=== PATIENT | female | born 1980 | race Caucasian/White ===

== ENCOUNTER 2025-05-11 16:04 | Inpatient (IN) ==
[2025-05-11] MEDS ORDERED: BUDESONIDE 0.5 MG/2 ML AMPUL.NEB INH ONE (16:29)
[2025-05-11] MEDS ORDERED: FUROSEMIDE 40 MG/4 ML VIAL ONE (16:31)
[2025-05-11] MEDS: FUROSEMIDE 20 MG/2 ML VIAL IV ONE (16:33)
[2025-05-11] MEDS: IPRATROPIUM/ALBUTEROL SULFATE 3 ML AMPUL.NEB INH ONE (16:46)
[2025-05-11 16:49] LABS: pH ABG 7.44 (7.35-7.45)
[2025-05-11 16:50] LABS: PCO2 ABG 69 mmHg (35-45); PO2 ABG 69 mmHg (60-100)
[2025-05-11 16:51] LABS: Base Excess ABG 19.1 mmo1/L (-2-2); Oxygen Saturation ABG 94 % (92-100)
[2025-05-11 17:02] LABS: Basophils #(Absolute) Auto 0.1 (0.0-0.1); Basophils%(Percent) Auto 1.3 (0.1-0.85); Eosinophils#(Absolute)Auto 0.2 (0.0-0.2); Eosinophils%(Percent) Auto 4.4 % (0.4-2.8); Granulocytes % - Auto 70.9 % (47.8-71.3); Granulocytes#(Absolute)- Auto 3.1 (2.3-6.0); Hematocrit 32.8 % (35.9-46.7); Mean Corpuscular Volume 106.3 fl (81.0-93.7); Monocytes #(Absolute)- Auto 0.2 (1.1-3.1); Monocytes %(Percent)- Auto 5.6 % (3.6-9.8); Platelet Count 224 K/uL (152-353); White Blood Count 4.4 K/uL (4.3-9.3)
[2025-05-11 17:07] LABS: Potassium 3.1 mmol/L (3.6-5.2)
--- NOTE | 2025-05-11 17:09 | Emergency Department Note ---
HPI - SOB/Dyspnea General Chief Complaint: SOB -Shortness of Breath Stated Complaint: SOB Source: patient, EMR, medical record and EMS Mode of arrival: ambulance Limitations: physical limitation History of Present Illness HPI Narrative: A 44-year-old patient came into the ER stating that she has been having increasing swelling difficulty breathing and requiring oxygen at home. Has been worsening the last 3 days she did not take her medications today because she knew she was coming to the ER and its taken her all afternoon to get here. Patient denies any fever, chills, nausea, vomiting, constant constipation no diarrhea no ill contacts. Patient mitts to having yeast underneath her breast and in her groin folds is causing lots of odor and itching discomfort urination. MD elicited complaint: Reports shortness of breath and cough Pertinent past history: Reports asthma Related Data Home oxygen amount: 3 liters Home Medications Medication Instructions Recorded Confirmed allopurinol 100 mg tablet 100 mg PO DAILY 05/11/25 bumetanide 1 mg tablet 1 mg PO DAILY 05/11/2505/11 gabapentin 400 mg capsule 400 mg PO TID 05/11/2505/11 ibuprofen 800 mg tablet 800 mg PO Q8H PRN pain 05/1105/11/25 levothyroxine 75 mcg tablet 75 mcg PO DAILY 05/11/25 0 05/11/25 losartan 50 mg tablet 50 mg PO DAILY 05/11/2504/27 venlafaxine 37.5 mg 37.5 mg PO DAILY 05/11/25 capsule,extended release 24 hr Allergies Allergy/AdvReac Type Severity Reaction Status Date / Time No Known Drug Allergies Allergy Verified 05/11/25 16:20 Review of Systems Status of ROS 10 or more systems reviewed and unremark able except as noted in history and below Constitutional Reports: fatigue, malaise and change in sleep pattern; Denies: fever, chills, change in weight or night sweats Eyes Denies: change in vision, blurry vision, blind spots, light sensitivity, eye discomfort, eye discharge, dry eyes or increased production of tears Ears, nose, mouth, and throat Denies: throat pain, neck pain, throat swelling, difficulty swallowing, hoarseness, mouth pain, swelling of lips/tongue or dry mouth Cardiovascular Reports: shortness of breath with exertion; Denies: chest pain, palpitations, edema, swelling of feet/ankles, lightheadedness, shortness of breath when lying down or leg pain with exertion Respiratory Reports: shortness of breath and cough; Denies: wheezing, stridor, pain on inspiration or change in phlegm color Gastrointestinal Reports: constipation; Denies: abdominal pain, nausea, vomiting, coffee grounds in vomit, heartburn, diarrhea, bloating or belching Genitourinary Reports: painful urination, urinary incontinence and genital itching; Denies: urinary frequency, urinary urgency, blood in urine, difficulty voiding or decreased urine ouput Musculoskeletal Reports: back pain, extremity pain (rt foot) and limited range of motion; Denies: neck pain, extremity swelling, joint pain, joint swelling or muscle cramps Integumentary/Breast Reports: itching; Denies: rash, redness, skin pain, skin tenderness, skin swelling, sores or new lesion Neurological Reports: headache; Denies: numbness in extremities, weakness in extremities, lack of coordination, dizziness, vertigo or confusion Psychiatric Reports: anxiety; Denies: mood swings, panic attacks, change in sleep pattern, hopelessness, loss of interest, irritability, paranoia or memory loss Endocrine Reports: fatigue; Denies: excessive urination, excessive thirst, cold intolerance, excessive sweating or flushing Hematologic/Lymphatic Denies: easy bruising, easy bleeding or enlarged lymph nodes Allergic/Immunologic Denies: hives, throat swelling, tongue swelling, facial swelling, wheezing or itchy eyes PFSH PFSH Medical History On home oxygen therapy Thyroid disease CAD (coronary artery disease) COPD (chronic obstructive pulmonary disease) HTN (hypertension) Gout Surgical History Previous section Social History Smoking status: current every day smoker Second hand tobacco smoke exposure: No Within the past year, how often did you have a drink containing alcohol: never Within the past year, how often did you have six or more drinks on one occasion: never Score interpretation: A score less than 3 is consistent with normal alcohol consumption. Non-prescribed substance use: denies use What is your current living situation: I presently have a place to live Problems where you live: no known problems In the past 12 months, utilities in danger of being shut off: no In past 12 months, lack of transportation kept you from medical appts, meetings, work, or getting things needed for daily living: No How hard is it for you to pay for the very basics like food, housing, medical care, and heating: decline to answer Past 12 mos, fear food will run out before able to buy more: never true In past 12 months, food didn't last until money to buy more: never true Are you following a diet prescribed by a doctor: No Are you following a special diet: No Do you want help finding or keeping work or a job: I do not need or want help Known occupational exposures/hazards: No Highest level of school completed/degree received: decline to answer Do you want help with school or training: No How many days of moderate to strenuous exercise, like a brisk walk, did you do in the last 7 days: decline to answer Caffeine: No How often does anyone, including family, friends and others, physically hurt you : never How often does anyone, including family, friends and others, insult or talk down to you: never How often does anyone, including family, friends and others, threaten you with harm: never How often does anyone, including family, friends and others, scream or curse at you: never Firearms in home: no Do you need help with ADLs: I don't need any help Due to a physical, mental, or emotional condition, do you have difficulty doing errands alone such as visiting a doctor's office or shopping: No Little interest or pleasure in doing things: not at all Feeling down, depressed, or hopeless: not at all Feel stressed/tense/nervous/anxious/difficulty sleeping: to some extent Life stressors: financial matters Life stressor details: Current medical condition, lack of medication Do you think of yourself as: straight/heterosexual Gender Identity: female Are you currently sexually active: No Are you using contraception or practicing any form of control: No service: No Exam Constitutional: abnormal general appearance (disheveled) and (chronically ill), distress noted (moderate), abnormal body habitus (obese), limitations noted (physical limitations) and alert Vital Signs - 24 hr 05/11/25 16:05 05/11/25 16:33 05/11/25 16:45 Temperature 98.1 F Pulse Rate 76 Respiratory Rate 22 Blood Pressure 155/99 171/101 Pulse Oximetry 93 L 97 Oxygen Delivery Me thod Nasal Cannula Oxygen Flow Rate 3 Fraction of Inspir ed Oxygen 05/11/25 17:00 05/11/25 17:30 05/11/25 17:42 Temperature Pulse Rate 76 72 Respiratory Rate 21 22 Blood Pressure 138/78 161/99 161/89 Pulse Oximetry 95 96 Oxygen Delivery Me thod BiPAP BiPAP Oxygen Flow Rate Fraction of Inspir ed Oxygen 05/11/25 18:30 05/11/25 19:00 05/11/25 19:11 Temperature Pulse Rate 77 74 86 Respiratory Rate 22 21 Blood Pressure 176/98 162/103 Pulse Oximetry 97 97 Oxygen Delivery Me thod BiPAP BiPAP Oxygen Flow Rate Fraction of Inspir ed Oxygen 32 05/11/25 19:30 05/11/25 20:00 05/11/25 20:30 Temperature Pulse Rate 76 72 76 Respiratory Rate 20 22 20 Blood Pressure 158/92 144/84 150/85 Pulse Oximetry 97 96 97 Oxygen Delivery Me thod Oxygen Flow Rate Fraction of Inspir ed Oxygen 05/11/25 20:44 05/11/25 21:00 Temperature Pulse Rate 89 68 Respiratory Rate 20 Blood Pressure 147/94 Pulse Oximetry 96 Oxygen Delivery Me thod BiPAP Oxygen Flow Rate Fraction of Inspir ed Oxygen 32 HENMT: normocephalic, head/scalp atraumatic, hearing grossly normal bilaterally, external ears normal, TMs abnormal, nasal mucous membranes abnormal, external nose normal, oral mucous membranes abnormal, oropharynx normal and dentition abnormal Eyes: PERRL, EOMs intact bilaterally, conjunctivae normal, no scleral icterus, papilledema noted, alignment normal, periorbital findings normal and no nystagmus Neck/C-Spine: abnormal to visual inspection, trachea midline, cervical spine nontender, abnormal cervical ROM noted, supple, no meningeal signs and thyroid normal Lymph: no lymphadenopathy noted and no lymphedema noted Chest: inspection of chest normal and palpation of chest normal Respiratory: breath sounds unequal (Diminished secondary to body habitus), normal respiratory effort, wheezing noted, no rales, no retractions and no use of accessory muscles Cardiovascular: normal heart rate noted, regular rhythm noted, no gallop, no rub, no murmur, no JVD, no clicks, peripheral pulses 2+ throughout and no bruits noted Gastrointestinal: abdomen abnormal to inspection (obese), abdomen soft to palpation, nontender to palpation, nondistended, abnormal bowel sounds noted (hypoactive bowel sounds), hepatosplenomegaly noted, no ascites and no hernia Genitourinary: no CVA tenderness and bladder normal to palpation Back/Pelvis: spine normal to inspection, no thoracic spine tenderness, no lumbar spine tenderness, thoracic spine ROM normal, lumbar spine ROM normal and no paraspinal muscle tenderness noted Extremities: abnormal to inspection, normal to palpation, tenderness noted, abnormal ROM noted, no joint enlargement and deformity noted Neurology: joint cutter machine II-XII intact (Normal as tested), no movement abnormality noted, no focal motor deficit noted, sensory deficit noted, deep tendon reflexes as noted:, gait abnormality noted (unable to access), speech normal, coordination normal, no pronator drift noted, no fasciculations noted and GCS normal Psychiatry: Mental Status Exam documented within this Exam's Psych section mental status grossly normal, oriented x3, thought process abnormality noted, cooperative, affect abnormality noted (anxious), psychomotor abnormality noted (slow) and (disorganized) and memory normal Feel stressed/tense/nervous/anxious/difficulty sleeping: to some extent Life stressors: financial matters Life stressor details: Current medical condition, lack of medication Skin: skin color normal, no rash, no lesions, ecchymosis noted, no wounds, no lacerations, skin turgor abnormal, no jaundice, no petechiae, no mottling, nails abnormality noted and no alopecia Course Course Hospital Course: Patient states readings are better after the Lasix Hepper good urine put out with a pure wick and tolerated DuoNeb and Pulmicort still requiring 4 L although she is normally only on 3 at home. Patient still has pursed lip breathing and only able to talk in 2-3 word sentences. States she feels less anxious and agrees to do the BiPAP machine at this time although she is very anxious about it took about 30 minutes of coaxing Reevaluation(s) Reevaluation #1: Misunderstanding ABG BiPAP was started at this time patient continues you as well as volatile now in 4-5 word sentences oxygen nation anywhere from 90 to 94% on the 4 L. Patient was placed on the BiPAP and tolerating it well sleeping snoring respirations and having apneic periods. Patient is arousable still okay on conversation and when observed after she returns to sleep she still having apneic episodes she states she has a history of sleep apnea she does not use a CPAP at home secondary to anxiety Time: 18:24 Reevaluation #2: Patient still arousable still having apneic episodes ABG returned worsening pCO2 to 75 so we will increase pressures and repeat ABG in 30 minutes. Spoke with Deena who agreed to observation on the floor once she is weaned from the BiPAP machine. Time: 20:21 Vital Signs Vital signs: Vital Signs Temperature 98.1 F 05/11/25 16:05 Pulse Rate 76 05/11/25 16:05 Respiratory Rate 22 05/11/25 16:05 Blood Pressure 155/99 05/11/25 16:05 Pulse Oximetry 93 L 05/11/25 16:05 Oxygen Delivery Method Nasal Cannula 05/11/25 16:05 Oxygen Flow Rate 3 05/11/25 16:05 Temperature 98.1 F 05/11/25 16:05 Pulse Rate 68 05/11/25 21:00 Respiratory Rate 20 05/11/25 21:00 Blood Pressure 147/94 05/11/25 21:00 Pulse Oximetry 96 05/11/25 21:00 Oxygen Delivery Method BiPAP 05/11/25 21:00 Oxygen Flow Rate 3 05/11/25 16:05 Fraction of Inspired Oxygen 32 05/11/25 20:44 MDM - SOB/Dyspnea MDM Narrative Medical decision making narrative: Asthma, COPD exacerbation, congestive heart failure, fluid overload, pleural effusions, pneumonia, renal failure, respiratory failure Differential Diagnosis Differential diagnosis: Likely acute exacerbation of chronic obstructive airways disease, congestive heart failure, community acquired pneumonia, asthma with exacerbation and pulmonary embolism Medical Records Attestation: I reviewed the patient's medical records. Lab Data Attestation: I reviewed the patient's lab results. Labs: Lab Results 05/11/25 05/11/25 05/11/25 Range/Units 16:45 16:45 16:50 WBC 4.4 (4.3-9.3) K/uL RBC 3.1 L (4.00-5.50) M/uL Hgb 10.6 L (12.5-15.8) gm/dL Hct 32.8 L (35.9-46.7) % MCV 106.3 H (81.0-93.7) fl MCH 34.3 H (27.6-32.2) pg MCHC 32.3 L (33.1-35.3) g/dl RDW 15.3 H (11.4-14.2) % Plt Count 224 (152-353) K/uL MPV 7.6 (6.9-10.8) fl Gran % 70.9 (47.8-71.3) % Lymph % (Auto) 17.8 L (20.0-43.0) % [place] % (Auto) 5.6 (3.6-9.8) % Eos % (Auto) 4.4 H (0.4-2.8) % Baso % (Auto) 1.3 H (0.1-0.85) Lymph # (Auto) 0.8 L (1.1-3.1) [place] # (Auto) 0.2 L (1.1-3.1) Eos # (Auto) 0.2 (0.0-0.2) Baso # (Auto) 0.1 (0.0-0.1) Absolute Gran (auto) 3.1 (2.3-6.0) ABG pH 7.44 (7.35-7.45) ABG pCO2 69 H* (35-45) mmHg ABG pO2 69 170 (60-100) mmHg ABG PO2/FiO2 Ratio 0.41 ABG HCO3 46.9 H (22-26) mmo1/L ABG Total CO2 49 mmo1/L ABG O2 Saturation 94 (92-100) % ABG Base Excess 19.1 H* (-2-2) mmo1/L A-a O2 Gradient 101 mmHg Respiratory Index 1.5 H (0-1) Actual Respiration Rate /MIN Vent Mode FiO2 36 % Sodium 142 (136-145) mmol/L Potassium 3.1 L (3.6-5.2) mmol/L Chloride 98.0 (98-107) mmol/L Carbon Dioxide 36 H (21-32) mmol/L Anion Gap 8.0 (4-14) mEq/L BUN 16 (7-18) mg/dL Creatinine 1.6 H (0.6-1.3) mg/dL Estimated GFR 40.3 (>59.9) Glucose 73 (70-110) mg/dL Calcium 8.5 (8.5-10.1) mg/dL Phosphorus (2.5-4.9) mg/dL Magnesium (1.8-2.4) mg/dL Total Bilirubin 0.34 (0.0-1.0) mg/dL AST 13 L (15-37) U/L ALT 17 L (30-65) U/L Alkaline Phosphatase 67 (50-136) U/L B-Natriuretic Peptide 99.4 (0-100) pg/mL Total Protein 7.6 (6.4-8.2) g/dL Albumin 3.5 (3.4-5.0) g/dL Urine Color (STRAW/YELL.) Urine Appearance (CLEAR) Ur Specific [place] (1.001-1.035) Urine Protein (NEGATIVE) Urine Glucose (UA) (NORMAL) Urine Ketones (NEGATIVE) Urine Occult Blood (NEG - TRACE) Urine Nitrite (NEGATIVE) Urine Bilirubin (NEGATIVE) Urine Urobilinogen (NORMAL) Ur Leukocyte Esterase (NEGATIVE) Urine RBC (0 - 5) Urine WBC ( 0 - 5) Ur Epithelial Cells (Few/HPF) Amorphous Sediment (Negative) Urine Bacteria (Negative) Urine Mucus (Negative) Urine Trichomonas (Negative) Urine Yeast (Negative) Fluid pH (5 - 9) Urine Opiates Screen (NEGATIVE) Urine Methadone Screen (NEGATIVE) Barbiturate Screen (NEGATIVE) Ur Phencyclidine Scrn (NEGATIVE) Amphetamines Screen (NEGATIVE) U Benzodiazepines Scrn (NEGATIVE) Urine Cocaine Screen (NEGATIVE) U Marijuana (THC) Screen (NEGATIVE) 05/11/25 05/11/25 05/11/25 Range/Units 17:26 20:03 20:03 WBC (4.3-9.3) K/uL RBC (4.00-5.50) M/uL Hgb (12.5-15.8) gm/dL Hct (35.9-46.7) % MCV (81.0-93.7) fl MCH (27.6-32.2) pg MCHC (33.1-35.3) g/dl RDW (11.4-14.2) % Plt Count (152-353) K/uL MPV (6.9-10.8) fl Gran % (47.8-71.3) % Lymph % (Auto) (20.0-43.0) % [place] % (Auto) (3.6-9.8) % Eos % (Auto) (0.4-2.8) % Baso % (Auto) (0.1-0.85) Lymph # (Auto) (1.1-3.1) [place] # (Auto) (1.1-3.1) Eos # (Auto) (0.0-0.2) Baso # (Auto) (0.0-0.1) Absolute Gran (auto) (2.3-6.0) ABG pH 7.41 (7.35-7.45) ABG pCO2 75 H* (35-45) mmHg ABG pO2 65 134 (60-100) mmHg ABG PO2/FiO2 Ratio 0.49 ABG HCO3 47.5 H (22-26) mmo1/L ABG Total CO2 49.8 mmo1/L ABG O2 Saturation 93 (92-100) % ABG Base Excess 19 H* (-2-2) mmo1/L A-a O2 Gradient 69 mmHg Respiratory Index 1.1 H (0-1) Actual Respiration Rate 14 /MIN Vent Mode Bipap FiO2 32 % Sodium (136-145) mmol/L Potassium (3.6-5.2) mmol/L Chloride (98-107) mmol/L Carbon Dioxide (21-32) mmol/L Anion Gap (4-14) mEq/L BUN (7-18) mg/dL Creatinine (0.6-1.3) mg/dL Estimated GFR (>59.9) Glucose (70-110) mg/dL Calcium (8.5-10.1) mg/dL Phosphorus 3.2 (2.5-4.9) mg/dL Magnesium 1.6 L (1.8-2.4) mg/dL Total Bilirubin (0.0-1.0) mg/dL AST (15-37) U/L ALT (30-65) U/L Alkaline Phosphatase (50-136) U/L B-Natriuretic Peptide (0-100) pg/mL Total Protein (6.4-8.2) g/dL Albumin (3.4-5.0) g/dL Urine Color Yellow (STRAW/YELL.) Urine Appearance Clear (CLEAR) Ur Specific [place] 1.010 (1.001-1.035) Urine Protein Negative (NEGATIVE) Urine Glucose (UA) Normal (NORMAL) Urine Ketones Negative (NEGATIVE) Urine Occult Blood 4+ (NEG - TRACE) Urine Nitrite Negative (NEGATIVE) Urine Bilirubin Negative (NEGATIVE) Urine Urobilinogen Normal (NORMAL) Ur Leukocyte Esterase Negative (NEGATIVE) Urine RBC Negative (0 - 5) Urine WBC Negative ( 0 - 5) Ur Epithelial Cells Few (Few/HPF) Amorphous Sediment Negative (Negative) Urine Bacteria Few (Negative) Urine Mucus Negative (Negative) Urine Trichomonas Negative (Negative) Urine Yeast Negative (Negative) Fluid pH 5.0 (5 - 9) Urine Opiates Screen Neg. (NEGATIVE) Urine Methadone Screen Neg. (NEGATIVE) Barbiturate Screen Neg. (NEGATIVE) Ur Phencyclidine Scrn Neg. (NEGATIVE) Amphetamines Screen Neg. (NEGATIVE) U Benzodiazepines Scrn Neg. (NEGATIVE) Urine Cocaine Screen Neg. (NEGATIVE) U Marijuana (THC) Screen Pos. (NEGATIVE) ABG Data ABG results: 3 ABG's reviewed Attestation: I have reviewed the pertinent ABG results. Imaging Data Imaging ordered: Chest x-ray Attestation: I have reviewed the pertinent imaging results. ECG Data Attestation: I have reviewed the pertinent ECG results. Prior ECG tracings: available for review Interpretation: EKG-sinus rhythm, atrial premature complexes, rate 73, RR 828, [place] 174 Smoking Cessation Time spent discussing smoking cessation with patient: more than 10 minutes Patient Acknowledges Need for Cessation: Yes Additional Comments: States that she has tried stopping the past without any success at this point Discharge Plan Discharge Patient Disposition: Admitted As Observation Condition: Stable Clinical Impression: Respiratory failure with hypercapnia, Community acquired pneumonia, Diastolic congestive heart failure, Morbid (severe) obesity with alveolar hypoventilation Time of Disposition: 21:24
[2025-05-11] MEDS: POTASSIUM CHLORIDE 20 MEQ TAB.ER.PRT PO ONE (17:44)
[2025-05-11 18:01] LABS: Amphetamine Screen Urine NEG. (NEGATIVE); Cannabinoid Screen Urine POS. (NEGATIVE); Cocaine Screen Urine NEG. (NEGATIVE); Methadone Screen Urine NEG. (NEGATIVE); Opiate Screen Urine NEG. (NEGATIVE)
[2025-05-11] MEDS ORDERED: MAGNESIUM OXIDE 400 MG TABLET ONE (18:30)
[2025-05-11 18:31] LABS: Urine Appearance CLEAR (CLEAR); Urine Color YELLOW (STRAW/YELL.)
[2025-05-11 18:32] LABS: Urine Blood 4+ (NEG - TRACE); Urine Urobilinogen Normal (NORMAL)
[2025-05-11] MEDS: MAGNESIUM OXIDE 400 MG TABLET PO ONE (18:32)
[2025-05-11 18:42] LABS: Urine Amorphous Sediment Negative (Negative); Urine Yeast Negative (Negative)
[2025-05-11 20:36] LABS: pH ABG 7.41 (7.35-7.45)
[2025-05-11 20:37] LABS: PCO2 ABG 75 mmHg (35-45); PO2 ABG 65 mmHg (60-100)
[2025-05-11 20:38] LABS: Base Excess ABG 19 mmo1/L (-2-2); Oxygen Saturation ABG 93 % (92-100)
[2025-05-11] MEDS ORDERED: ONDANSETRON HCL/PF 4 MG/2 ML VIAL INJ PRN (21:24)
[2025-05-11 21:44] LABS: PCO2 ABG 70 mmHg (35-45); PO2 ABG 58 mmHg (60-100); pH ABG 7.44 (7.35-7.45)
[2025-05-11 21:45] LABS: Base Excess ABG 19.6 mmo1/L (-2-2); Oxygen Saturation ABG 91 % (92-100)
[2025-05-11] MEDS ORDERED: FLUCONAZOLE-NACL 200 MG/100 ML 200 MG/100 ML PIGGYBACK IV ONE (21:50)
[2025-05-11] MEDS: FLUCONAZOLE-NACL 200 MG/100 ML 200 MG/100 ML PIGGYBACK IV SCH (21:53)
[2025-05-11] MEDS: METHYLPREDNISOLONE SOD SUCC/PF 40 MG/ML VIAL INJ SCH (21:53)
[2025-05-11] MEDS: BUDESONIDE 0.5 MG/2 ML AMPUL.NEB INH ONE (22:05)
[2025-05-11] MEDS: IPRATROPIUM/ALBUTEROL SULFATE 3 ML AMPUL.NEB INH SCH (22:05)
[2025-05-11] MEDS: NYSTATIN 15 GM POWDER TOPICAL SCH (22:54)
[2025-05-12 05:33] LABS: Basophils%(Percent) Auto 0.3 (0.1-0.85); Eosinophils%(Percent) Auto 0.1 % (0.4-2.8); Granulocytes % - Auto 94.5 % (47.8-71.3); Granulocytes#(Absolute)- Auto 5.9 (2.3-6.0); Hematocrit 29.3 % (35.9-46.7); Mean Corpuscular Volume 106.8 fl (81.0-93.7); Monocytes %(Percent)- Auto 0.8 % (3.6-9.8); Platelet Count 193 K/uL (152-353); White Blood Count 6.2 K/uL (4.3-9.3)
[2025-05-12 05:54] LABS: Potassium 4.3 mmol/L (3.6-5.2)
[2025-05-12 06:17] LABS: Hypochromia 2+ (20-21) (None Seen); RBC Morphology Normal (Normal); Total Cells Counted 100
[2025-05-12 06:18] LABS: Rouleau 1+ (Negative)
[2025-05-12] MEDS: BUDESONIDE 0.5 MG/2 ML AMPUL.NEB INH SCH (06:53)
[2025-05-12] MEDS: ACETAMINOPHEN 500 MG TABLET PO PRN (07:05)
[2025-05-12] MEDS: ENOXAPARIN SODIUM 40 MG/0.4 ML SYRINGE SUBQ SCH (09:45)
[2025-05-12] MEDS: AZITHROMYCIN 500 MG 500 MG in 0.9 % SODIUM CHLORIDE 250 ML IV SCH (09:45)
[2025-05-12] MEDS: NICOTINE 21 MG/HR .TD24 TD SCH (09:46)
[2025-05-12] MEDS: PANTOPRAZOLE SODIUM 40 MG TABLET.DR PO SCH (09:46)
[2025-05-12] MEDS: METHYLPREDNISOLONE SOD SUCC/PF 125 MG/2 ML VIAL INJ SCH (09:47)
--- NOTE | 2025-05-12 11:24 | Progress Note ---
Progress Note: Subjective Subjective Interval history: 44 y/o female HD2, admitted for COPD exacerbation, Resp failure, and generalized weakness. Pt with continued IV antibiotics, scheduled nebulizers, and oxygen therapy. Patient overall resp effort and COPD has improved. Patient states her breathing is "better today". She continues to have several concerns to include her being out/off her home medications, ability to perform ADLS ("wipe myself"), and "night phobias". Exam Constitutional: normal general appearance and no apparent distress Vital Signs - 24 hr 05/11/25 16:05 05/11/25 16:33 05/11/25 16:45 Temperature 98.1 F Pulse Rate 76 Pulse Rate [Left B rachial] Pulse Rate [Right] Respiratory Rate 22 Blood Pressure 155/99 171/101 Blood Pressure [Ri ght Arm] Pulse Oximetry 93 L 97 Oxygen Delivery Me thod Nasal Cannula Oxygen Flow Rate 3 Fraction of Inspir ed Oxygen 05/11/25 17:00 05/11/25 17:30 05/11/25 17:42 Temperature Pulse Rate 76 72 Pulse Rate [Left B rachial] Pulse Rate [Right] Respiratory Rate 21 22 Blood Pressure 138/78 161/99 161/89 Blood Pressure [Ri ght Arm] Pulse Oximetry 95 96 Oxygen Delivery Me thod BiPAP BiPAP Oxygen Flow Rate Fraction of Inspir ed Oxygen 05/11/25 18:30 05/11/25 19:00 05/11/25 19:11 Temperature Pulse Rate 77 74 86 Pulse Rate [Left B rachial] Pulse Rate [Right] Respiratory Rate 22 21 Blood Pressure 176/98 162/103 Blood Pressure [Ri ght Arm] Pulse Oximetry 97 97 Oxygen Delivery Me thod BiPAP BiPAP Oxygen Flow Rate Fraction of Inspir ed Oxygen 32 05/11/25 19:30 05/11/25 20:00 05/11/25 20:30 Temperature Pulse Rate 76 72 76 Pulse Rate [Left B rachial] Pulse Rate [Right] Respiratory Rate 20 22 20 Blood Pressure 158/92 144/84 150/85 Blood Pressure [Ri ght Arm] Pulse Oximetry 97 96 97 Oxygen Delivery Me thod Oxygen Flow Rate Fraction of Inspir ed Oxygen 05/11/25 20:44 05/11/25 21:00 05/11/25 22:00 Temperature 98.1 F Pulse Rate 89 68 68 Pulse Rate [Left B rachial] Pulse Rate [Right] Respiratory Rate 20 20 Blood Pressure 147/94 147/94 Blood Pressure [Ri ght Arm] Pulse Oximetry 96 96 Oxygen Delivery Me thod BiPAP Oxygen Flow Rate Fraction of Inspir ed Oxygen 32 05/11/25 22:49 05/11/25 22:51 05/11/25 22:52 Temperature Pulse Rate 78 Pulse Rate [Left B rachial] Pulse Rate [Right] 70 Respiratory Rate 22 Blood Pressure Blood Pressure [Ri ght Arm] Pulse Oximetry 94 L 93 L Oxygen Delivery Me thod BiPAP Oxygen Flow Rate Fraction of Inspir ed Oxygen 40 45 05/12/25 00:00 05/12/25 03:18 05/12/25 03:18 Temperature 98.0 F Pulse Rate 73 Pulse Rate [Left B rachial] Pulse Rate [Right] 72 Respiratory Rate 20 Blood Pressure Blood Pressure [Ri ght Arm] 170/68 Pulse Oximetry 90 L 93 L Oxygen Delivery Me thod BiPAP Oxygen Flow Rate Fraction of Inspir ed Oxygen 40 05/12/25 04:00 05/12/25 07:02 05/12/25 08:00 Temperature 98.1 F Pulse Rate Pulse Rate [Left B rachial] 75 Pulse Rate [Right] 73 Respiratory Rate 20 20 Blood Pressure Blood Pressure [Ri ght Arm] 126/85 Pulse Oximetry 95 94 L 95 Oxygen Delivery Me thod BiPAP Nasal Cannula Oxygen Flow Rate 4 Fraction of Inspir ed Oxygen HENMT: normocephalic, head/scalp atraumatic, nasal mucous membranes normal and oral mucous membranes normal Eyes: PERRL, EOMs intact bilaterally, conjunctivae normal and no scleral icterus Neck/C-Spine: visual inspection normal, trachea midline, cervical spine nontender and supple Lymph: no lymphadenopathy noted Chest: inspection of chest normal Respiratory: no retractions and no use of accessory muscles coarse breath sounds diffusely, mild bilateral upper lobe exp wheeze active cough on exam Cardiovascular: normal heart rate noted, regular rhythm noted, no gallop, no rub, no murmur and peripheral pulses 2+ throughout Gastrointestinal: abdomen normal to inspection, abdomen soft to palpation, nontender to palpation, nontender to percussion, no masses and no pulsatile mass Genitourinary: no CVA tenderness and bladder normal to palpation Back/Pelvis: spine normal to inspection, no thoracic spine tenderness, no lumbar spine tenderness and thoracic spine ROM normal Extremities: normal to inspection, normal to palpation, no tenderness and full ROM Neurology: newspaper columnist II-XII intact, no movement abnormality noted, no focal motor deficit noted and GCS normal Psychiatry: mental status grossly normal, oriented x3, thought process normal and cooperative Skin: skin color normal, no rash, no lesions and no ecchymosis noted Progress Note: Objective Labs Labs: CBC 05/11/25 05/12/25 Range/Units 16:50 05:20 WBC 4.4 6.2 (4.3-9.3) K/uL RBC 3.1 L 2.8 L (4.00-5.50) M/uL Hgb 10.6 L 9.4 L (12.5-15.8) gm/dL Hct 32.8 L 29.3 L (35.9-46.7) % Plt Count 224 193 (152-353) K/uL Gran % 70.9 94.5 H (47.8-71.3) % Lymph % (Auto) 17.8 L 4.3 L (20.0-43.0) % [place] % (Auto) 5.6 0.8 L (3.6-9.8) % Eos % (Auto) 4.4 H 0.1 L (0.4-2.8) % Baso % (Auto) 1.3 H 0.3 (0.1-0.85) Lymph # (Auto) 0.8 L 0.3 L (1.1-3.1) [place] # (Auto) 0.2 L 0.0 L (1.1-3.1) Eos # (Auto) 0.2 0.0 (0.0-0.2) Baso # (Auto) 0.1 0.0 (0.0-0.1) Absolute Gran (auto) 3.1 5.9 (2.3-6.0) CMP 05/11/25 05/12/25 16:50 05:20 Sodium 142 140 Potassium 3.1 L 4.3 Chloride 98.0 98.0 Carbon Dioxide 36 H 33 H BUN 16 19 H Creatinine 1.6 H 1.6 H Glucose 73 132 H Calcium 8.5 8.3 L Liver Function 05/11/25 05/12/25 Range/Units 16:50 05:20 Total Bilirubin 0.34 0.39 (0.0-1.0) mg/dL AST 13 L 18 (15-37) U/L ALT 17 L 17 L (30-65) U/L Alkaline Phosphatase 67 59 (50-136) U/L Albumin 3.5 3.0 L (3.4-5.0) g/dL Urine 05/11/25 17:26 Urine Color Yellow Urine Appearance Clear Ur Specific [place] 1.010 Urine Protein Negative Urine Glucose (UA) Normal ABG Attestation: I have reviewed the pertinent ABG results. Pulse Oximetry Attestation: I have reviewed the pertinent pulse oximetry results. Imaging Chest x-ray: Attestation: I have reviewed the pertinent imaging results. Progress Note: A&P Assessment and Plan (1) COPD with acute exacerbation: (2) Cellulitis, abdominal wall: (3) Hypomagnesemia: (4) Hypokalemia: (5) Failure to thrive in adult: Plan COPD Exacerbation 1. Continued Azithromycin 2. Continued scheduled IV steroids 3. Continued scheduled nebulizer meds Cellulitis, Abdominal Wall 1. Start Rocephin 1gram BIB 2. Daily wound checks Hypomagnesia / Hypokalemia 1. Electrolyte replacement protocol Adult Failure to Thrive / Social Support 1. Case Management consult 2. Short vs intermediate frame tender placement discussed with patient bedside 3. Obtain Outpatient Pharmacy records (pt off her medications > 30 days) Fall Risk Details Boudreaux Fall Scale Risk Level: High Fall Risk Current Medications: Current Medications Acetaminophen (Acetaminophen 500 Mg Tablet) 1,000 mg PO Q6H PRN PRN Reason: MILD PAIN SCALE 1-4/fever Last Admin: 05/12/25 07:05 Dose: 1,000 mg Albuterol Sulfate (Ipratropium/Albuterol Sulfate 3 Ml Ampul.Neb) 3 ml INH Q6H [facility] Last Admin: 05/12/25 06:53 Dose: 3 ml Budesonide (Budesonide 0.5 Mg/2 Ml Ampul.Neb) 0.5 mg INH RBID [facility] Last Admin: 05/12/25 06:53 Dose: 0.5 mg Docusate Sodium (Docusate Sodium 100 Mg Capsule) 100 mg PO DAILY PRN PRN Reason: Constipation Enoxaparin Sodium (Enoxaparin Sodium 40 Mg/0.4 Ml Syringe) 40 mg SUBQ DAILY [facility] Last Admin: 05/12/25 09:45 Dose: 40 mg Azithromycin 500 mg/ Sodium (Chloride) 250 mls @ 250 mls/hr IV DAILY [facility] Stop: 05/14/25 09:59 Last Admin: 05/12/25 09:45 Dose: 250 mls/hr Fluconazole (Fluconazole-Nacl 200 Mg/100 Ml) 200 mg in 100 mls @ 100 mls/hr IV Q24H [facility] Last Admin: 05/11/25 21:53 Dose: 100 mls/hr Ceftriaxone Sodium 1 gm/ (Sodium Chloride) 50 mls @ 100 mls/hr IV Q12H [facility] Magnesium Sulfate/Dextrose (Magnesium Sulf 1 G/100 Ml-D5w) 2 gm in 200 mls @ 100 mls/hr IV ONCE ONE Stop: 05/12/25 12:47 Methylprednisolone Sodium Succinate (Methylprednisolone Sod Succ/Pf 125 Mg/2 Ml Vial) 40 mg INJ Q8H [facility] Last Admin: 05/12/25 09:47 Dose: 40 mg Nicotine (Nicotine 21 Mg/Hr .Td24) 1 each TD DAILY [facility] Last Admin: 05/12/25 09:46 Dose: 1 each Nystatin (Nystatin 15 Gm Powder) 1 gm TOPICAL TID [facility] Last Admin: 05/12/25 09:46 Dose: 1 gm Ondansetron HCl (Ondansetron Hcl/Pf 4 Mg/2 Ml Vial) 4 mg INJ Q6H PRN PRN Reason: Nausea And Vomiting Pantoprazole Sodium (Pantoprazole Sodium 40 Mg Tablet.) 40 mg PO DAILY [facility] Last Admin: 05/12/25 09:46 Dose: 40 mg Time Spent With Patient Time: Total time spent is greater than 50% in coordination of care (as documented) at patient's floor/unit and/or counseling patient: Time with patient: greater than 35 minutes
[2025-05-12] MEDS: CEFTRIAXONE SODIUM 1 GM in 0.9 % SODIUM CHLORIDE MB+ 50 ML IV SCH (12:03)
[2025-05-12] MEDS: MAGNESIUM SULFATE/D5W 2 GM/200 ML PIGGYBACK IV ONE (14:03)
[2025-05-12] MEDS: diphenhydrAMINE HCL 25 MG CAP PO ONE (21:06)
[2025-05-12] MEDS: GABAPENTIN 400 MG CAPSULE PO SCH (21:06)
[2025-05-12] MEDS: VENLAFAXINE HCL 75 MG TABLET PO SCH (21:26)
[2025-05-13 04:51] LABS: Basophils%(Percent) Auto 0.1 (0.1-0.85); Granulocytes % - Auto 94.2 % (47.8-71.3); Hematocrit 26.4 % (35.9-46.7); Mean Corpuscular Volume 103.5 fl (81.0-93.7); Monocytes #(Absolute)- Auto 0.2 (1.1-3.1); Monocytes %(Percent)- Auto 1.8 % (3.6-9.8); Platelet Count 199 K/uL (152-353); White Blood Count 8.5 K/uL (4.3-9.3)
[2025-05-13] MEDS: BUDESONIDE 0.5 MG/2 ML AMPUL.NEB INH ONE (07:23)
[2025-05-13] MEDS: ALLOPURINOL 100 MG TABLET PO SCH (09:25)
[2025-05-13] MEDS: LEVOTHYROXINE SODIUM 75 MCG TABLET PO SCH (09:25)
[2025-05-13] MEDS: LOSARTAN POTASSIUM 50 MG TABLET PO SCH (09:25)
[2025-05-13] MEDS: 0.9 % SODIUM CHLORIDE 1000 ML 1,000 ML IV ONE (09:26)
[2025-05-13] MEDS: VENLAFAXINE HCL 37.5 MG CAP.ER.24H PO SCH (09:27)
[2025-05-13 09:57] LABS: Oxygen Saturation ABG 93 % (92-100); PO2 ABG 61 mmHg (60-100); pH ABG 7.48 (7.35-7.45)
[2025-05-13 09:58] LABS: Base Excess ABG 18.1 mmo1/L (-2-2); PCO2 ABG 60 mmHg (35-45)
--- NOTE | 2025-05-13 10:36 | Progress Note ---
Progress Note: Subjective Subjective Interval history: Ms. Rizo has no significant complaints this morning other than leg pain which she attributes to not receiving her neurontin on time. Attempted to clarify her medical hx and she was diagnosed with COPD at her hospitalization in [place] in September where she was discharged home on oxygen. She has been attempting to get disability since 2020 but has been unsuccessful. She was prescribed some meds on discharge but unable to afford them. Staff obtained her CPAP yesterday evening covered in mold and roaches. She does use home O2 at 3-4L. We will continue to titrate her steroids and change to inhalers vs nebulizers for discharge planning. Heather is still working on her placement. Exam Constitutional: normal general appearance and no apparent distress Vital Signs - 24 hr 05/12/25 12:00 05/12/25 13:45 05/12/25 16:00 Temperature 98.2 F 98.1 F Pulse Rate Pulse Rate [Left B rachial] 92 H 84 Pulse Rate [Right] Respiratory Rate 20 19 Blood Pressure Blood Pressure [Ri ght Arm] 132/77 Pulse Oximetry 94 L 94 L 93 L Oxygen Delivery Me thod Nasal Cannula Room Air Oxygen Flow Rate 4 Fraction of Inspir ed Oxygen 05/12/25 19:28 05/12/25 20:13 05/12/25 20:13 Temperature 98.0 F Pulse Rate Pulse Rate [Left B rachial] 72 Pulse Rate [Right] 72 Respiratory Rate 20 Blood Pressure Blood Pressure [Ri ght Arm] 128/71 Pulse Oximetry 93 L 95 95 Oxygen Delivery Me thod Nasal Cannula Nasal Cannula Oxygen Flow Rate 4 Fraction of Inspir ed Oxygen 36 05/12/25 22:06 05/12/25 23:25 05/13/25 03:14 Temperature 97.8 F 98.1 F Pulse Rate 78 Pulse Rate [Left B rachial] 71 73 Pulse Rate [Right] 71 73 Respiratory Rate 21 19 Blood Pressure Blood Pressure [Ri ght Arm] 116/64 137/85 Pulse Oximetry 97 94 L Oxygen Delivery Me thod CPAP CPAP Oxygen Flow Rate Fraction of Inspir ed Oxygen 45 05/13/25 07:33 05/13/25 08:37 05/13/25 09:25 Temperature 97.6 F Pulse Rate Pulse Rate [Left B rachial] 68 Pulse Rate [Right] Respiratory Rate 16 Blood Pressure 142/90 Blood Pressure [Ri ght Arm] 142/90 Pulse Oximetry 99 95 Oxygen Delivery Me thod CPAP Oxygen Flow Rate Fraction of Inspir ed Oxygen HENMT: normocephalic, head/scalp atraumatic, nasal mucous membranes normal and oral mucous membranes normal Eyes: PERRL, EOMs intact bilaterally, conjunctivae normal and no scleral icterus Neck/C-Spine: visual inspection normal, trachea midline, cervical spine nontender and supple Lymph: no lymphadenopathy noted Chest: inspection of chest normal Respiratory: breath sounds equal bilaterally, normal respiratory effort, no wheezes, no retractions and no use of accessory muscles Cardiovascular: normal heart rate noted, regular rhythm noted, no gallop, no rub, no murmur and peripheral pulses 2+ throughout Gastrointestinal: abdomen normal to inspection, abdomen soft to palpation, nontender to palpation, nontender to percussion, no masses and no pulsatile mass Genitourinary: no CVA tenderness and bladder normal to palpation Back/Pelvis: spine normal to inspection, no thoracic spine tenderness, no lumbar spine tenderness and thoracic spine ROM normal Extremities: normal to inspection, normal to palpation, no tenderness and full ROM 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, no movement abnormality noted, no focal motor deficit noted and GCS normal Psychiatry: mental status grossly normal, oriented x3, thought process normal and cooperative Skin: skin color normal, no rash, no lesions and no ecchymosis noted Progress Note: Objective Labs Labs: CBC 05/13/25 Range/Units 04:35 WBC 8.5 (4.3-9.3) K/uL RBC 2.6 L (4.00-5.50) M/uL Hgb 8.8 L (12.5-15.8) gm/dL Hct 26.4 L (35.9-46.7) % Plt Count 199 (152-353) K/uL Gran % 94.2 H (47.8-71.3) % Lymph % (Auto) 3.9 L (20.0-43.0) % [place] % (Auto) 1.8 L (3.6-9.8) % Eos % (Auto) 0.0 L (0.4-2.8) % Baso % (Auto) 0.1 (0.1-0.85) Lymph # (Auto) 0.3 L (1.1-3.1) [place] # (Auto) 0.2 L (1.1-3.1) Eos # (Auto) 0.0 (0.0-0.2) Baso # (Auto) 0.0 (0.0-0.1) Absolute Gran (auto) 8.0 H (2.3-6.0) CMP 05/13/25 04:35 Sodium 139 Potassium 4.0 Chloride 99.0 Carbon Dioxide 40 H BUN 30 H Creatinine 2.2 H Glucose 127 H Calcium 8.1 L Liver Function 05/13/25 Range/Units 04:35 Total Bilirubin 0.24 (0.0-1.0) mg/dL AST 10 L (15-37) U/L ALT 14 L (30-65) U/L Alkaline Phosphatase 57 (50-136) U/L Albumin 3.4 (3.4-5.0) g/dL Urine 05/11/25 17:26 Urine Color Yellow Urine Appearance Clear Ur Specific [place] 1.010 Urine Protein Negative Urine Glucose (UA) Normal Imaging Chest x-ray: Radiologist's impression: [place] [address] XRay Report Signed Patient: Sowyma Rizo MR#: [id number] : 1980 Acct:[id number] Age/Sex: 44 / F ADM Date: 05/11/25 Loc: [place] 1106-[address]: Dona Pinzon NP Ordering Physician: Mel Camacho DO Date of Service: 05/12/25 Procedure(s): XR chest 2V Accession Number(s): [id number] cc: Dona Pinzon NP; Mel Camacho DO~ EXAM: CHEST 2 VIEWS HISTORY: copd/respiratory failurecopd/respiratory failure; COMPARISON: None TECHNIQUE: Frontal and lateral views of the chest were submitted for interpretation. FINDINGS: The cardiomediastinal silhouette is within normal limits. Lungs show no focal consolidation, pneumothorax, or pleural fluid. Visualized bony structures are within normal limits. IMPRESSION: No acute cardiopulmonary process. THIS IS AN ELECTRONICALLY VERIFIED FINAL REPORT 05/12/2025 5:36 AM - Electronically signed by Laura Jeffers MD Dictated By: Laura Jeffers M.D. Signed By: 05/12/25 0536 DD/ 1 TD/TT: 05/12/25431 [employer]: [address] [address] XRay Report Signed Patient: Sowmya Rizo MR#: [id number] : 1980 Acct:[id number] Age/Sex: 44 / F ADM Date: 05/11/25 Loc: [place] 1106-[address]: Dona Pinzon [employer] Ordering Physician: Mel Camacho DO Date of Service: 05/11/25 Procedure(s): XR chest 1V Accession Number(s): [id number] cc: Dona Pinzon [employer]; Mel Camacho DO~ EXAM: CHEST HISTORY: Shortness of BreathShortness of Breath; COMPARISON: None. TECHNIQUE: Frontal view of the chest was submitted for interpretation. FINDINGS: The cardiomediastinal silhouette is within normal limits. Lungs show no focal consolidation, pneumothorax, or pleural fluid. IMPRESSION: No acute cardiopulmonary process. THIS IS AN ELECTRONICALLY VERIFIED FINAL REPORT 05/12/2025 5:55 AM - Electronically signed by Laura Jeffers MD Dictated By: Laura Jeffers M.D. Signed By: 05/12/25 0555 Progress Note: A&P Assessment and Plan (1) COPD with acute exacerbation: (2) Cellulitis, abdominal wall: (3) Hypomagnesemia: (4) Hypokalemia: (5) Failure to thrive in adult: Plan COPD Exacerbation 1. Continued Azithromycin 2. Change to Prednisone 20mg po po BID 3. Continued scheduled nebulizer meds 4. Change to Symbicort 5. D/C Pulmicort 6. Duoneb QID Cellulitis, Abdominal Wall 1. Start Rocephin 1gram BIB 2. Daily wound checks Hypomagnesia / Hypokalemia 1. Resolved Adult Failure to Thrive / Social Support 1. Case Management consult 2. Short vs fdc placement discussed with patient bedside 3. Obtain Outpatient Pharmacy records (pt off her medications > 30 days) Fall Risk Details Boudreaux Fall Scale Risk Level: Moderate Fall Risk Current Medications: Current Medications Acetaminophen (Acetaminophen 500 Mg Tablet) 1,000 mg PO Q6H PRN PRN Reason: MILD PAIN SCALE 1-4/fever Last Admin: 06/16/25 22:38 Dose: 1,000 mg Albuterol Sulfate (Ipratropium/Albuterol Sulfate 3 Ml Ampul.Neb) 3 ml INH Q6H [facility] Last Admin: 05/13/25 08:30 Dose: 3 ml Allopurinol (Allopurinol 100 Mg Tablet) 100 mg PO DAILY [facility] Last Admin: 05/13/25 09:25 Dose: 100 mg Budesonide/Formoterol Fumarate (Budesonide/Formoterol Fumarate 80/4.5) 2 puff INH BID [facility] Docusate Sodium (Docusate Sodium 100 Mg Capsule) 100 mg PO DAILY PRN PRN Reason: Constipation Enoxaparin Sodium (Enoxaparin Sodium 40 Mg/0.4 Ml Syringe) 40 mg SUBQ DAILY [facility] Last Admin: 05/13/25 09:24 Dose: 40 mg Gabapentin (Gabapentin 400 Mg Capsule) 400 mg PO TID [facility] Last Admin: 05/13/25 09:25 Dose: 400 mg Azithromycin 500 mg/ Sodium (Chloride) 250 mls @ 250 mls/hr IV DAILY [facility] Stop: 05/14/25 09:59 Last Admin: 05/13/25 09:25 Dose: 250 mls/hr Fluconazole (Fluconazole-Nacl 200 Mg/100 Ml) 200 mg in 100 mls @ 100 mls/hr IV Q24H [facility] Last Admin: 05/12/25 21:06 Dose: 100 mls/hr Ceftriaxone Sodium 1 gm/ (Sodium Chloride) 50 mls @ 100 mls/hr IV Q12H [facility] Last Infusion: 05/13/25 01:56 Dose: Infused Sodium Chloride (Sodium Chloride) 1,000 mls @ 75 mls/hr IV ONCE ONE Stop: 05/13/25 22:19 Last Admin: 05/13/25 09:26 Dose: 75 mls/hr Levothyroxine Sodium (Levothyroxine Sodium 75 Mcg Tablet) 75 mcg PO DAILY [facility] Last Admin: 05/13/25 09:25 Dose: 75 mcg Losartan Potassium (Losartan Potassium 50 Mg Tablet) 50 mg PO DAILY [facility] Last Admin: 05/13/25 09:25 Dose: 50 mg Nicotine (Nicotine 21 Mg/Hr .Td24) 1 each TD DAILY [facility] Last Admin: 05/13/25 09:26 Dose: 1 each Nystatin (Nystatin 15 Gm Powder) 1 gm TOPICAL TID [facility] Last Admin: 05/13/25 09:26 Dose: 1 gm Ondansetron HCl (Ondansetron Hcl/Pf 4 Mg/2 Ml Vial) 4 mg INJ Q6H PRN PRN Reason: Nausea And Vomiting Pantoprazole Sodium (Pantoprazole Sodium 40 Mg Tablet.Dr) 40 mg PO DAILY [facility] Last Admin: 05/13/25 09:25 Dose: 40 mg Prednisone (Prednisone 20 Mg Tablet) 20 mg PO BID [facility] Venlafaxine HCl (Venlafaxine Hcl 37.5 Mg Cap.Er.24h) 37.5 mg PO DAILY [facility] Last Admin: 05/13/25 09:27 Dose: 37.5 mg Time Spent With Patient Time: Total time spent is greater than 50% in coordination of care (as documented) at patient's floor/unit and/or counseling patient:
[2025-05-13] MEDS: predniSONE 20 MG TABLET PO SCH (22:10)
[2025-05-13] MEDS: FORMOTEROL FUMARATE INH SCH (22:13)
[2025-05-13] MEDS: BUDESONIDE INH SCH (22:13)
[2025-05-13] MEDS: DOCUSATE SODIUM 100 MG CAPSULE PO PRN (22:14)
[2025-05-14 04:42] LABS: Basophils%(Percent) Auto 0.4 (0.1-0.85); Eosinophils%(Percent) Auto 0.1 % (0.4-2.8); Granulocytes % - Auto 89.2 % (47.8-71.3); Granulocytes#(Absolute)- Auto 9.6 (2.3-6.0); Mean Corpuscular Volume 103.7 fl (81.0-93.7); Monocytes #(Absolute)- Auto 0.5 (1.1-3.1); Monocytes %(Percent)- Auto 4.8 % (3.6-9.8); Platelet Count 195 K/uL (152-353); White Blood Count 10.7 K/uL (4.3-9.3)
[2025-05-14] MEDS: SERTRALINE HCL 50 MG TABLET PO SCH (09:05)
[2025-05-14 10:53] LABS: Potassium 4.3 mmol/L (3.6-5.2)
--- NOTE | 2025-05-14 12:18 | Progress Note ---
Progress Note: Subjective Subjective Interval history: Ms. Rizo received sitting up in bed eating breakfast. No acute distress noted and patient has no complaints this morning. Nonproductive cough noted. Patient verbalizes that she's feeling better after receiving Symbicort. [facility] is still working on discharge plans. Exam Constitutional: normal general appearance and no apparent distress Vital Signs - 24 hr 05/13/25 15:35 05/13/25 19:29 05/13/25 19:29 Temperature 98.3 F Pulse Rate [Left B rachial] 80 Pulse Rate [Right] Respiratory Rate 18 Blood Pressure [Ri t Arm] 122/74 Pulse Oximetry 94 L 97 97 Oxygen Delivery Me thod Nasal Cannula Nasal Cannula Oxygen Flow Rate 3 3 Fraction of Inspir ed Oxygen 32 05/13/25 19:34 05/13/25 23:12 05/14/25 03:17 Temperature 98.1 F 98.2 F 98.2 F Pulse Rate [Left B rachial] 79 69 67 Pulse Rate [Right] 79 69 67 Respiratory Rate 23 21 20 Blood Pressure [Ri ght Arm] 141/82 128/75 146/89 Pulse Oximetry 95 95 96 Oxygen Delivery Me thod Nasal Cannula Nasal Cannula Nasal Cannula Oxygen Flow Rate Fraction of Inspir ed Oxygen 05/14/25 07:33 05/14/25 11:50 Temperature 97.7 F 97.6 F Pulse Rate [Left B rachial] 60 72 Pulse Rate [Right] Respiratory Rate 20 19 Blood Pressure [Ri t Arm] 131/76 150/93 Pulse Oximetry 95 93 L Oxygen Delivery Me thod Nasal Cannula Nasal Cannula Oxygen Flow Rate 3 4 Fraction of Inspir ed Oxygen HENMT: normocephalic, head/scalp atraumatic, nasal mucous membranes normal and oral mucous membranes normal Eyes: PERRL, EOMs intact bilaterally, conjunctivae normal and no scleral icterus Neck/C-Spine: visual inspection normal, trachea midline, cervical spine nontender and supple Lymph: no lymphadenopathy noted Chest: inspection of chest normal Respiratory: breath sounds equal bilaterally, normal respiratory effort, no wheezes, no retractions and no use of accessory muscles Cardiovascular: normal heart rate noted, regular rhythm noted, no gallop, no rub, no murmur and peripheral pulses 2+ throughout Gastrointestinal: abdomen normal to inspection, abdomen soft to palpation, nontender to palpation, nontender to percussion, no masses and no pulsatile mass Genitourinary: no CVA tenderness and bladder normal to palpation Back/Pelvis: spine normal to inspection, no thoracic spine tenderness, no lumbar spine tenderness and thoracic spine ROM normal Extremities: normal to inspection, normal to palpation, no tenderness and full ROM Neurology: information systems analyst II-XII intact, no movement abnormality noted, no focal motor deficit noted and GCS normal Psychiatry: mental status grossly normal, oriented x3, thought process normal and cooperative Skin: skin color normal, no rash, no lesions and no ecchymosis noted Progress Note: Objective Labs Labs: CBC 05/14/25 Range/Units 04:35 WBC 10.7 H (4.3-9.3) K/uL RBC 2.6 L (4.00-5.50) M/uL Hgb 9.0 L (12.5-15.8) gm/dL Hct 27.0 L (35.9-46.7) % Plt Count 195 (152-353) K/uL Gran % 89.2 H (47.8-71.3) % Lymph % (Auto) 5.5 L (20.0-43.0) % [place] % (Auto) 4.8 (3.6-9.8) % Eos % (Auto) 0.1 L (0.4-2.8) % Baso % (Auto) 0.4 (0.1-0.85) Lymph # (Auto) 0.6 L (1.1-3.1) [place] # (Auto) 0.5 L (1.1-3.1) Eos # (Auto) 0.0 (0.0-0.2) Baso # (Auto) 0.0 (0.0-0.1) Absolute Gran (auto) 9.6 H (2.3-6.0) CMP 05/14/25 04:35 Sodium 142 Potassium 4.3 Chloride 98.0 Carbon Dioxide 37 H BUN 39 H Creatinine 2.1 H Glucose 127 H Calcium 7.8 L Urine 05/11/25 17:26 Urine Color Yellow Urine Appearance Clear Ur Specific [place] 1.010 Urine Protein Negative Urine Glucose (UA) Normal Progress Note: A&P Assessment and Plan (1) COPD with acute exacerbation: (2) Cellulitis, abdominal wall: (3) Hypomagnesemia: (4) Hypokalemia: (5) Failure to thrive in adult: Plan COPD Exacerbation 1. Continued Azithromycin 2. Continued Prednisone 20mg po po BID 3. Continued scheduled nebulizer meds 4. Continued Symbicort 5. Duoneb QID Cellulitis, Abdominal Wall 1. Continued Rocephin 1gram BID 2. Daily wound checks Hypomagnesia / Hypokalemia 1. Resolved Adult Failure to Thrive / Social Support 1. Case Management for discharge planning 2. Short vs fci placement vs home discussed with patient bedside Fall Risk Details Boudreaux Fall Scale Risk Level: Moderate Fall Risk Current Medications: Current Medications Acetaminophen (Acetaminophen 500 Mg Tablet) 1,000 mg PO Q6H PRN PRN Reason: MILD PAIN SCALE 1-4/fever Last Admin: 05/13/25 22:11 Dose: 1,000 mg Albuterol Sulfate (Ipratropium/Albuterol Sulfate 3 Ml Ampul.Neb) 3 ml INH RQ6 [facility] Allopurinol (Allopurinol 100 Mg Tablet) 100 mg PO DAILY [facility] Last Admin: 05/14/25 08:16 Dose: 100 mg Budesonide/Formoterol Fumarate (Budesonide/Formoterol Fumarate 80/4.5) 2 puff INH BID [facility] Last Admin: 05/14/25 08:17 Dose: 2 puff Docusate Sodium (Docusate Sodium 100 Mg Capsule) 100 mg PO DAILY PRN PRN Reason: Constipation Last Admin: 05/13/25 22:14 Dose: 100 mg Enoxaparin Sodium (Enoxaparin Sodium 40 Mg/0.4 Ml Syringe) 40 mg SUBQ DAILY [facility] Last Admin: 05/14/25 08:16 Dose: 40 mg Gabapentin (Gabapentin 400 Mg Capsule) 400 mg PO TID [facility] Last Admin: 05/14/25 08:16 Dose: 400 mg Fluconazole (Fluconazole-Nacl 200 Mg/100 Ml) 200 mg in 100 mls @ 100 mls/hr IV Q24H [facility] Last Admin: 05/13/25 22:10 Dose: 100 mls/hr Ceftriaxone Sodium 1 gm/ (Sodium Chloride) 50 mls @ 100 mls/hr IV Q12H [facility] Last Admin: 05/14/25 11:40 Dose: 100 mls/hr Levothyroxine Sodium (Levothyroxine Sodium 75 Mcg Tablet) 75 mcg PO DAILY [facility] Last Admin: 05/14/25 08:16 Dose: 75 mcg Losartan Potassium (Losartan Potassium 50 Mg Tablet) 50 mg PO DAILY [facility] Last Admin: 05/14/25 08:16 Dose: 50 mg Nicotine (Nicotine 21 Mg/Hr .Td24) 1 each TD DAILY [facility] Last Admin: 05/14/25 08:16 Dose: 1 each Nystatin (Nystatin 15 Gm Powder) 1 gm TOPICAL TID [facility] Last Admin: 05/14/25 08:16 Dose: 1 gm Ondansetron HCl (Ondansetron Hcl/Pf 4 Mg/2 Ml Vial) 4 mg INJ Q6H PRN PRN Reason: Nausea And Vomiting Pantoprazole Sodium (Pantoprazole Sodium 40 Mg Tablet.Dr) 40 mg PO DAILY [facility] Last Admin: 05/14/25 08:16 Dose: 40 mg Prednisone (Prednisone 20 Mg Tablet) 20 mg PO BID [facility] Last Admin: 05/14/25 09:05 Dose: 20 mg Sertraline HCl (Sertraline Hcl 50 Mg Tablet) 25 mg PO QAM [facility] Last Admin: 05/14/25 09:05 Dose: 25 mg Time Spent With Patient Time: Total time spent is greater than 50% in coordination of care (as documented) at patient's floor/unit and/or counseling patient: Time with patient: 25 - 35 minutes
[2025-05-14] MEDS: IPRATROPIUM/ALBUTEROL SULFATE 3 ML AMPUL.NEB INH SCH (13:44)
[2025-05-14] MEDS: FLUCONAZOLE 150 MG TABLET PO SCH (16:52)
[2025-05-15] MEDS: NICOTINE 21 MG/HR .TD24 TD SCH (00:16)
[2025-05-15 06:17] LABS: Basophils #(Absolute) Auto 0.1 (0.0-0.1); Basophils%(Percent) Auto 0.7 (0.1-0.85); Hematocrit 26.5 % (35.9-46.7); Mean Corpuscular Volume 104.5 fl (81.0-93.7); Monocytes #(Absolute)- Auto 0.5 (1.1-3.1); Monocytes %(Percent)- Auto 4.5 % (3.6-9.8); Platelet Count 166 K/uL (152-353); White Blood Count 10.2 K/uL (4.3-9.3)
[2025-05-15] MEDS: predniSONE 20 MG TABLET PO SCH ×2 (10:22→11:12)
--- NOTE | 2025-05-15 15:41 | Progress Note ---
Progress Note: Subjective Subjective Interval history: Ms. Rizo still awaiting insurance to provide home supplies such as oxygen and assist vs rehab facility. She has been working with PT. Exam Constitutional: normal general appearance and no apparent distress Vital Signs - 24 hr 05/14/25 16:00 05/14/25 19:28 05/14/25 19:29 Temperature 98.1 F Pulse Rate Pulse Rate [Left B rachial] 67 Respiratory Rate 19 Blood Pressure [Ri ght Arm] 140/78 Pulse Oximetry 99 99 99 Oxygen Delivery Me thod Nasal Cannula Nasal Cannula Oxygen Flow Rate 3 3 Fraction of Inspir ed Oxygen 32 05/14/25 20:00 05/15/25 00:00 05/15/25 01:21 Temperature 98 F 98.1 F Pulse Rate Pulse Rate [Left B rachial] 69 69 Respiratory Rate 18 18 Blood Pressure [Ri ght Arm] 123/74 138/84 Pulse Oximetry 96 99 97 Oxygen Delivery Me thod Nasal Cannula Nasal Cannula Oxygen Flow Rate 3 3 Fraction of Inspir ed Oxygen 05/15/25 01:47 05/15/25 04:00 05/15/25 07:31 Temperature 98 F Pulse Rate 76 Pulse Rate [Left B rachial] 71 Respiratory Rate 16 Blood Pressure [Ri ght Arm] 149/92 Pulse Oximetry 100 96 Oxygen Delivery Me thod CPAP Oxygen Flow Rate Fraction of Inspir ed Oxygen 35 05/15/25 08:00 05/15/25 12:00 05/15/25 13:50 Temperature 97.8 F 97.9 F Pulse Rate Pulse Rate [Left B rachial] 79 63 Respiratory Rate 19 19 Blood Pressure [Ri ght Arm] 146/85 137/89 Pulse Oximetry 93 L 94 L 97 Oxygen Delivery Me thod Nasal Cannula Nasal Cannula Oxygen Flow Rate 4 4 Fraction of Inspir ed Oxygen HENMT: normocephalic, head/scalp atraumatic, nasal mucous membranes normal and oral mucous membranes normal Eyes: PERRL, EOMs intact bilaterally, conjunctivae normal and no scleral icterus Neck/C-Spine: visual inspection normal, trachea midline, cervical spine nontender and supple Lymph: no lymphadenopathy noted Chest: inspection of chest normal Respiratory: breath sounds equal bilaterally, normal respiratory effort, no wheezes, no retractions and no use of accessory muscles Cardiovascular: normal heart rate noted, regular rhythm noted, no gallop, no rub, no murmur and peripheral pulses 2+ throughout Gastrointestinal: abdomen normal to inspection, abdomen soft to palpation, nontender to palpation, nontender to percussion, no masses and no pulsatile mass Genitourinary: no CVA tenderness and bladder normal to palpation Back/Pelvis: spine normal to inspection, no thoracic spine tenderness, no lumbar spine tenderness and thoracic spine ROM normal Extremities: normal to inspection, normal to palpation, no tenderness and full ROM Neurology: tin flopper II-XII intact, no movement abnormality noted, no focal motor deficit noted and GCS normal Psychiatry: mental status grossly normal, oriented x3, thought process normal and cooperative Skin: skin color normal, no rash, no lesions and no ecchymosis noted Progress Note: Objective Labs Labs: CBC 05/15/25 Range/Units 05:00 WBC 10.2 H (4.3-9.3) K/uL RBC 2.5 L (4.00-5.50) M/uL Hgb 8.8 L (12.5-15.8) gm/dL Hct 26.5 L (35.9-46.7) % Plt Count 166 (152-353) K/uL Gran % 88.0 H (47.8-71.3) % Lymph % (Auto) 6.8 L (20.0-43.0) % [place] % (Auto) 4.5 (3.6-9.8) % Eos % (Auto) 0.0 L (0.4-2.8) % Baso % (Auto) 0.7 (0.1-0.85) Lymph # (Auto) 0.7 L (1.1-3.1) [place] # (Auto) 0.5 L (1.1-3.1) Eos # (Auto) 0.0 (0.0-0.2) Baso # (Auto) 0.1 (0.0-0.1) Absolute Gran (auto) 9.0 H (2.3-6.0) CMP 05/15/25 05:00 Sodium 141 Potassium 5.0 Chloride 97.0 L Carbon Dioxide 36 H BUN 43 H Creatinine 2.1 H Glucose 126 H Calcium 7.8 L Urine 05/11/25 17:26 Urine Color Yellow Urine Appearance Clear Ur Specific [place] 1.010 Urine Protein Negative Urine Glucose (UA) Normal Progress Note: A&P Assessment and Plan (1) COPD with acute exacerbation: (2) Cellulitis, abdominal wall: (3) Hypomagnesemia: (4) Hypokalemia: (5) Failure to thrive in adult: Plan COPD Exacerbation 1. Continued Azithromycin 2. Continued Prednisone 20mg po po BID 3. Continued scheduled nebulizer meds 4. Continued Symbicort 5. Duoneb QID Cellulitis, Abdominal Wall 1. Continued Rocephin 1gram BID 2. Daily wound checks Hypomagnesia / Hypokalemia 1. Resolved Adult Failure to Thrive / Social Support 1. Case Management for discharge planning 2. Short vs nursing home placement vs home discussed with patient bedside Fall Risk Details Boudreaux Fall Scale Risk Level: High Fall Risk Current Medications: Current Medications Acetaminophen (Acetaminophen 500 Mg Tablet) 1,000 mg PO Q6H PRN PRN Reason: MILD PAIN SCALE 1-4/fever Last Admin: 05/13/25 22:11 Dose: 1,000 mg Albuterol Sulfate (Ipratropium/Albuterol Sulfate 3 Ml Ampul.Neb) 3 ml INH RQ6 [facility] Last Admin: 05/15/25 13:50 Dose: 3 ml Allopurinol (Allopurinol 100 Mg Tablet) 100 mg PO DAILY [facility] Last Admin: 05/15/25 08:16 Dose: 100 mg Budesonide/Formoterol Fumarate (Budesonide/Formoterol Fumarate 80/4.5) 2 puff INH BID [facility] Last Admin: 05/15/25 08:16 Dose: 2 puff Docusate Sodium (Docusate Sodium 100 Mg Capsule) 100 mg PO DAILY PRN PRN Reason: Constipation Last Admin: 05/13/25 22:14 Dose: 100 mg Enoxaparin Sodium (Enoxaparin Sodium 40 Mg/0.4 Ml Syringe) 40 mg SUBQ DAILY [facility] Last Admin: 05/15/25 08:16 Dose: 40 mg Fluconazole (Fluconazole 150 Mg Tablet) 150 mg PO Q24H [facility] Last Admin: 05/14/25 16:52 Dose: 150 mg Gabapentin (Gabapentin 400 Mg Capsule) 400 mg PO TID [facility] Last Admin: 05/15/25 08:16 Dose: 400 mg Ceftriaxone Sodium 1 gm/ (Sodium Chloride) 50 mls @ 100 mls/hr IV Q12H [facility] Last Infusion: 05/15/25 13:17 Dose: Infused Levothyroxine Sodium (Levothyroxine Sodium 75 Mcg Tablet) 75 mcg PO DAILY [facility] Last Admin: 05/15/25 08:16 Dose: 75 mcg Losartan Potassium (Losartan Potassium 50 Mg Tablet) 50 mg PO DAILY [facility] Last Admin: 05/15/25 08:16 Dose: 50 mg Nicotine (Nicotine 21 Mg/Hr .Td24) 1 each TD BEDTIME [facility] Last Admin: 05/15/25 00:16 Dose: 1 each Nystatin (Nystatin 15 Gm Powder) 1 gm TOPICAL TID [facility] Last Admin: 05/15/25 08:17 Dose: 1 gm Ondansetron HCl (Ondansetron Hcl/Pf 4 Mg/2 Ml Vial) 4 mg INJ Q6H PRN PRN Reason: Nausea And Vomiting Pantoprazole Sodium (Pantoprazole Sodium 40 Mg Tablet.Dr) 40 mg PO DAILY [facility] Last Admin: 05/15/25 08:16 Dose: 40 mg Prednisone (Prednisone 20 Mg Tablet) 10 mg PO BID [facility] Last Admin: 05/15/25 11:12 Dose: 10 mg Sertraline HCl (Sertraline Hcl 50 Mg Tablet) 25 mg PO QAM [facility] Last Admin: 05/15/25 08:16 Dose: 25 mg Time Spent With Patient Time: Total time spent is greater than 50% in coordination of care (as documented) at patient's floor/unit and/or counseling patient:
[2025-05-16 08:12] VITALS: BP 164/63; PULSE 79; RESP 17; TEMP 98.7
--- NOTE | 2025-05-16 10:20 | Discharge Summary ---
DS: Providers Provider Date of admission: 05/11/25 21:24 Primary care physician: Neda Zimmerman NP Consults: 05/12/25 14:00 Consult to Psychiatry Routine Comment: Consulting Provider: Cliff Sen Physician Instructions: Reason for consultation: complaints of "night phobias" Has provider been notified: No 05/14/25 10:46 Consult to Occupational Therapy Routine Comment: Consulting Provider: Reason for consultation: Deconditioning Physician Instructions: Evaluate and Treat Consult to Physical Therapy Routine Comment: Consulting Provider: Reason for consultation: Deconditioning Physician Instructions: Evaluate and Treat 05/14/25 11:19 Consult to Respiratory Therapy Routine Comment: Consulting Provider: Ivan Borrero Physician Instructions: Reason for consultation: 6 minute walk test 05/14/25 14:12 Consult to Coffee Sommelier Routine Comment: Consulting Provider: Physician Instructions: Reason for consultation: discharge planning Has provider been notified: Yes DS: Diagnosis Discharge Diagnosis (1) Acute hypercapnic respiratory failure: (2) COPD with acute exacerbation: (3) Cellulitis, abdominal wall: (4) Hypomagnesemia: (5) Hypokalemia: (6) Failure to thrive in adult: (7) Hypothyroid: Qualifiers: Hypothyroidism type: acquired Qualified Code(s): E03.9 - Hypothyroidism, unspecified (8) HTN (hypertension): Qualifiers: Hypertension type: primary hypertension Qualified Code(s): I10 - Essential (primary) hypertension (9) Anemia: Qualifiers: Anemia type: other cause Other causes of anemia: other cause, not classified Qualified Code(s): D64.89 - Other specified anemias DS: Summary Hospital Course Hospital Course: Patient states readings are better after the Lasix Hepper good urine put out with a pure wick and tolerated DuoNeb and Pulmicort still requiring 4 L although she is normally only on 3 at home. Patient still has pursed lip breathing and only able to talk in 2-3 word sentences. States she feels less anxious and agrees to do the BiPAP machine at this time although she is very anxious about it took about 30 minutes of coaxing 05/12/2025 44 y/o female HD2, admitted for COPD exacerbation, Resp failure, and generalized weakness. Pt with continued IV antibiotics, scheduled nebulizers, and oxygen therapy. Patient overall resp effort and COPD has improved. Patient states her breathing is "better today". She continues to have several concerns to include her being out/off her home medications, ability to perform ADLS ("wipe myself"), and "night phobias". Electrolytes replace per protocol in the stay 05/13/2025 Ms. Rizo has no significant complaints this morning other than leg pain which she attributes to not receiving her neurontin on time. Attempted to clarify her medical hx and she was diagnosed with COPD at her hospitalization in [place] in September where she was discharged home on oxygen. She has been attem pting to get disability since 2020 but has been unsuccessful. She was prescribed some meds on discharge but unable to afford them. Staff obtained her CPAP yesterday evening covered in mold and roaches. She does use home O2 at 3- 4L. We will continue to titrate her steroids and change to inhalers vs nebulizers for discharge planning. [facility] is still working on her placement. Decided to work on short versus long-term placement for patient says she has difficulty at home started: Rocephin 1 g twice daily and Zithromax continued, will nonconsolidated what medication she should be taking versus what she is actually taking by her looking at the records of the last few months of her pharmacy records. DC Pulmicort today 05/14/2025 Ms. Rizo received sitting up in bed eating breakfast. No acute distress noted and patient has no complaints this morning. Nonproductive cough noted. Patient verbalizes that she's feeling better after receiving Symbicort. [facility] is still working on discharge plans. Awaiting to see if patient's insurance in place can be found for short-term or long-term placement for patient 05/15/2025 Patient doing well still having difficulty getting around secondary shortness of breath awaiting insurance to provide home supplier for oxygen and assist with rehab or long-term facility and patient continues to work physical therapy on this date 05/16/2025 Patient was discharged home with oxygen secondary to no placement at this time Status at Discharge Functional status at discharge: independent ambulation Overall status at discharge: patient is progressing back to baseline Time Spent with Patient Time attestation: Total time spent providing and/or coordinating discharge services: Exam Constitutional: abnormal general appearance (disheveled) and (chronically ill), no apparent distress, abnormal body habitus (obese), no limitations and alert Vital Signs - 24 hr 05/15/25 12:00 05/15/25 13:50 05/15/25 16:00 Temperature 97.9 F 97.8 F Pulse Rate [Left B rachial] 63 72 Respiratory Rate 19 19 Blood Pressure Blood Pressure [Ri ght Arm] 137/89 166/86 Pulse Oximetry 94 L 97 93 L Oxygen Delivery Me thod Nasal Cannula Room Air Oxygen Flow Rate 4 Fraction of Inspir ed Oxygen 05/15/25 19:49 05/15/25 20:51 05/15/25 20:51 Temperature 98.2 F Pulse Rate [Left B rachial] 73 Respiratory Rate 20 Blood Pressure Blood Pressure [Ri ght Arm] 151/83 Pulse Oximetry 95 98 98 Oxygen Delivery Me thod Nasal Cannula Nasal Cannula Oxygen Flow Rate 2 Fraction of Inspir ed Oxygen 28 05/15/25 23:46 05/16/25 03:31 05/16/25 04:00 Temperature 97.8 F 98.1 F Pulse Rate [Left B rachial] 64 68 Respiratory Rate 19 19 Blood Pressure Blood Pressure [Ri ght Arm] 153/94 172/53 Pulse Oximetry 99 97 100 Oxygen Delivery Me thod Nasal Cannula CPAP Oxygen Flow Rate Fraction of Inspir ed Oxygen 05/16/25 07:09 05/16/25 08:00 05/16/25 09:23 Temperature 98.7 F Pulse Rate [Left B rachial] 79 Respiratory Rate 17 Blood Pressure 164/63 Blood Pressure [Ri ght Arm] 164/63 Pulse Oximetry 94 L 96 Oxygen Delivery Me thod Nasal Cannula Oxygen Flow Rate 3 Fraction of Inspir ed Oxygen HENMT: normocephalic, head/scalp atraumatic, nasal mucous membranes normal and oral mucous membranes normal Eyes: PERRL, EOMs intact bilaterally, conjunctivae normal, no scleral icterus, papilledema noted and periorbital findings normal Neck/C-Spine: visual inspection normal, trachea midline, cervical spine nontender, abnormal cervical ROM noted, supple, no meningeal signs, thyroid normal and no carotid bruits Lymph: no lymphadenopathy noted and no lymphedema noted Chest: inspection of chest normal and palpation of chest normal Respiratory: breath sounds unequal, normal respiratory effort, clear to auscultation bilaterally, no wheezes, no retractions and no use of accessory muscles Cardiovascular: normal heart rate noted, regular rhythm noted, no gallop, no rub, no murmur and peripheral pulses 2+ throughout Gastrointestinal: abdomen normal to inspection, abdomen soft to palpation, nontender to palpation, nontender to percussion, no masses and no pulsatile mass Genitourinary: no CVA tenderness and bladder normal to palpation Back/Pelvis: spine normal to inspection, no thoracic spine tenderness, no lumbar spine tenderness and thoracic spine ROM normal Extremities: normal to inspection, normal to palpation, no tenderness and full ROM Neurology: consultant electronics II-XII intact, no movement abnormality noted, no focal motor deficit noted and GCS normal Psychiatry: mental status grossly normal, oriented x3, thought process normal and cooperative Skin: skin color normal, no rash, no lesions and no ecchymosis noted Discharge Plan Discharge Disposition: Home, Self-Care Condition: Stable Discharge Medications: New losartan 100 mg tablet 100 mg PO DAILY Qty: 30 0RF levothyroxine 100 mcg capsule 100 mcg PO DAILY Qty: 30 0RF Continued allopurinol 100 mg tablet 100 mg PO DAILY bumetanide 1 mg tablet 1 mg PO DAILY gabapentin 400 mg capsule 400 mg PO TID levothyroxine 75 mcg tablet 75 mcg PO DAILY venlafaxine 37.5 mg capsule,extended release 24hr 37.5 mg PO DAILY Discontinued ibuprofen 800 mg tablet 800 mg PO Q8H PRN (Reason: pain) losartan 50 mg tablet 50 mg PO DAILY Discharge Orders: Discharge Order (Routine); Ordered 05/16/25 Ordered By: Mel Camacho Activity: as per physical therapy and increase activity as tolerated Diet: low fat, low cholesterol and other Diet Detail: work out a sustainable weight loss regimen Interventions: Discharge Assessment Last Done: 05/16/25 10:45 MED/SURG & ICU Observation Charge Sheet Last Done: 05/16/25 10:40 Patient Instructions: Hypothyroidism (GEN), Using Oxygen at Home (DC), Hypertension (GEN) Activity Restrictions/Additional Instructions: Ent Nurse referral PCP follow up 5-7 days home health with [facility] take thyroid by itself with no other medications on an empty stomache and wait an hour to eat. repeat TSH in 4 weeks increase water in her daily diet Forms: Portal/Health Info Access Inst Follow-Ups: Neda Zimmerman NP [Primary Care Provider, Medical] - 05/19/25 9:00 am Discharge Date/Time: 05/16/25 12:34
== END 2025-05-16 12:34 | disposition home or self-care (01) | DRG 190 ==
LOC: ED 16:04 → MS 16:04 → OBSVTOIN 21:24 → MS 22:00
PROVIDERS: ADMIT Family Medicine; ATTEND Nurse Practitioner Family
DX: J44.1 Chronic obstructive pulmonary disease with (acute) exacerbation; Z99.81 Dependence on supplemental oxygen; Z68.44 Body mass index [BMI] 60.0-69.9, adult; J96.02 Acute respiratory failure with hypercapnia; Z79.899 Other long term (current) drug therapy; F17.200 Nicotine dependence, unspecified, uncomplicated; E03.9 Hypothyroidism, unspecified; I25.10 Atherosclerotic heart disease of native coronary artery without angina pectoris; E87.6 Hypokalemia; I10 Essential (primary) hypertension; Z79.1 Long term (current) use of non-steroidal anti-inflammatories (NSAID); L03.311 Cellulitis of abdominal wall; Z79.890 Hormone replacement therapy; E83.42 Hypomagnesemia; M10.9 Gout, unspecified; R62.7 Adult failure to thrive; E66.813 Obesity, class 3

== ENCOUNTER 2025-05-22 15:40 | Inpatient (IN) ==
[2025-05-22 16:10] LABS: Basophils%(Percent) Auto 0.6 (0.1-0.85); Eosinophils#(Absolute)Auto 0.2 (0.0-0.2); Eosinophils%(Percent) Auto 3.4 % (0.4-2.8); Granulocytes % - Auto 71.5 % (47.8-71.3); Granulocytes#(Absolute)- Auto 4.6 (2.3-6.0); Hematocrit 25.5 % (35.9-46.7); Mean Corpuscular Volume 104.8 fl (81.0-93.7); Monocytes #(Absolute)- Auto 0.6 (1.1-3.1); Monocytes %(Percent)- Auto 9.5 % (3.6-9.8); Platelet Count 168 K/uL (152-353); White Blood Count 6.4 K/uL (4.3-9.3)
[2025-05-22 16:22] LABS: Potassium 4.4 mmol/L (3.6-5.2)
[2025-05-22 16:25] LABS: INR 0.91
[2025-05-22 16:36] LABS: PH BODY FLUID EXCP BLOOD 7.5 (5 - 9); Urine Appearance CLEAR (CLEAR); Urine Blood NEGATIVE (NEG - TRACE); Urine Color YELLOW (STRAW/YELL.); Urine Urobilinogen Normal (NORMAL)
--- NOTE | 2025-05-22 17:28 | Emergency Department Note ---
HPI - General Adult General Chief complaint: SOB -Shortness of Breath Stated complaint: Coughing up blood Time Seen by Provider: 05/22/25 15:48 Source: patient and EMS Mode of arrival: ambulance Limitations: no limitations History of Present Illness HPI narrative: Patient is a 44-year-old white female who suffers from COPD and continues to smoke until a few days ago is in complaining of a 2-1/2-day history of coughing up what she thought may be a bloody tissue Onset (ago): day(s) (2.5) Location: Reports chest Radiation: Reports non-radiation Severity: mild-moderate Relieving factors: Reports none Exacerbating factors: Reports none Associated symptoms: Reports cough Treatments prior to arrival: Reports none Related Data Home Medications Medication Instructions Recorded Confirmed allopurinol 100 mg tablet 100 mg PO DAILY 05/11/25 bumetanide 1 mg tablet 1 mg PO DAILY 05/11/2505/11 gabapentin 400 mg capsule 400 mg PO TID 05/11/2505/11 levothyroxine 75 mcg tablet 75 mcg PO DAILY 05/11/25 0 05/11/25 venlafaxine 37.5 mg 37.5 mg PO DAILY 05/11/25 capsule,extended release 24 hr Previous Rx's Medication Instructions Recorded levothyroxine 100 mcg capsule 100 mcg PO DAILY hypothy roid #30 05/16/25 caps losartan 100 mg tablet 100 mg PO DAILY htn #30 tabs 05/16/25 Allergies Allergy/AdvReac Type Severity Reaction Status Date / Time No Known Drug Allergies Allergy Verified 05/22/25 15:57 Review of Systems Status of ROS 10 or more systems reviewed and unremark able except as noted in history and below Constitutional Denies: fever or chills Cardiovascular Reports: edema and swelling of feet/ankles Respiratory Reports: cough, coughing up blood and chest congestion [facility] Medical History Depression Anemia Hypothyroid On home oxygen therapy Thyroid disease CAD (coronary artery disease) COPD (chronic obstructive pulmonary disease) HTN (hypertension) Gout Surgical History Previous section Social History Smoking status: current every day smoker Second hand tobacco smoke exposure: No Within the past year, how often did you have a drink containing alcohol: never Within the past year, how often did you have six or more drinks on one occasion: never Score interpretation: A score less than 3 is consistent with normal alcohol consumption. Non-prescribed substance use: denies use What is your current living situation: I presently have a place to live Problems where you live: other Problems where you live details: No AC, No running water. Home is in very poor condition. In the past 12 months, utilities in danger of being shut off: no In past 12 months, lack of transportation kept you from medical appts, meetings, work, or getting things needed for daily living: No How hard is it for you to pay for the very basics like food, housing, medical care, and heating: decline to answer Past 12 mos, fear food will run out before able to buy more: never true In past 12 months, food didn't last until money to buy more: never true Are you following a diet prescribed by a doctor: No Are you following a special diet: No Do you want help finding or keeping work or a job: I do not need or want help Known occupational exposures/hazards: No Highest level of school completed/degree received: high school Do you want help with school or training: No How many days of moderate to strenuous exercise, like a brisk walk, did you do in the last 7 days: decline to answer Caffeine: No How often does anyone, including family, friends and others, physically hurt you : never How often does anyone, including family, friends and others, insult or talk down to you: never How often does anyone, including family, friends and others, threaten you with harm: never How often does anyone, including family, friends and others, scream or curse at you: never Firearms in home: no Do you need help with ADLs: I don't need any help Due to a physical, mental, or emotional condition, do you have difficulty doing errands alone such as visiting a doctor's office or shopping: No Little interest or pleasure in doing things: not at all Feeling down, depressed, or hopeless: not at all Feel stressed/tense/nervous/anxious/difficulty sleeping: to some extent Life stressors: financial matters Do you think of yourself as: straight/heterosexual Gender Identity: female Are you currently sexually active: No Are you using contraception or practicing any form of control: No service: No Exam Constitutional: normal general appearance Vital Signs - 24 hr 05/22/25 15:40 05/22/25 18:00 05/22/25 20:00 Temperature 98.3 F Pulse Rate 82 70 76 Respiratory Rate 24 19 17 Blood Pressure 141/99 141/103 160/78 Pulse Oximetry 97 95 95 Oxygen Delivery Me thod Room Air 05/22/25 21:00 05/22/25 21:50 05/22/25 22:41 Temperature Pulse Rate 69 66 Respiratory Rate 17 16 Blood Pressure 153/90 161/89 148/100 Pulse Oximetry 97 95 97 Oxygen Delivery Me thod Obese HENMT: normocephalic Eyes: PERRL and EOMs intact bilaterally Chest: inspection of chest normal Respiratory: breath sounds equal bilaterally, normal respiratory effort, auscultation abnormal and wheezing noted Faint wheeze Cardiovascular: normal heart rate noted, regular rhythm noted and no murmur Extremities: Nonpitting edema lower extremities Psychiatry: mental status grossly normal Skin: skin color normal Course Course Hospital Course: ]CT for PE study showed possible CHF versus other etiologies including hemorrhage and a high-resolution CT scan was recommended. This was performed which Show basically the same thing. My supervising physician Dr. Solis was called and his recommendation was to cover for pneumonia during the night and give some Lasix and repeat labs in the morning and see how the patient is doing which I think is very appropriate Vital Signs Vital signs: Vital Signs Temperature 98.3 F 05/22/25 15:40 Pulse Rate 82 05/22/25 15:40 Respiratory Rate 24 05/22/25 15:40 Blood Pressure 141/99 05/22/25 15:40 Pulse Oximetry 97 05/22/25 15:40 Oxygen Delivery Method Room Air 05/22/25 15:40 Temperature 98.3 F 05/22/25 15:40 Pulse Rate 66 05/22/25 22:41 Respiratory Rate 16 05/22/25 22:41 Blood Pressure 148/100 05/22/25 22:41 Pulse Oximetry 97 05/22/25 22:41 Oxygen Delivery Method Room Air 05/22/25 15:40 Medical Decision Making MDM Narrative Medical decision making narrative: pt admitted Lab Data Labs: Lab Results 05/22/25 05/22/25 Range/Units 15:55 16:00 WBC 6.4 (4.3-9.3) K/uL RBC 2.4 L (4.00-5.50) M/uL Hgb 8.2 L (12.5-15.8) gm/dL Hct 25.5 L (35.9-46.7) % MCV 104.8 H (81.0-93.7) fl MCH 33.7 H (27.6-32.2) pg MCHC 32.1 L (33.1-35.3) g/dl RDW 14.3 H (11.4-14.2) % Plt Count 168 (152-353) K/uL MPV 8.5 (6.9-10.8) fl Gran % 71.5 H (47.8-71.3) % Lymph % (Auto) 15.0 L (20.0-43.0) % [place] % (Auto) 9.5 (3.6-9.8) % Eos % (Auto) 3.4 H (0.4-2.8) % Baso % (Auto) 0.6 (0.1-0.85) Lymph # (Auto) 1.0 L (1.1-3.1) [place] # (Auto) 0.6 L (1.1-3.1) Eos # (Auto) 0.2 (0.0-0.2) Baso # (Auto) 0.0 (0.0-0.1) Absolute Gran (auto) 4.6 (2.3-6.0) PT 12.8 (12.1-15.0) SECONDS PT Normal Control 13.7 INR 0.91 APTT 26.9 (23.9-36.7) SECONDS D-Dimer 1110 H (100-600) ng/mL Sodium 143 (136-145) mmol/L Potassium 4.4 (3.6-5.2) mmol/L Chloride 99.0 (98-107) mmol/L Carbon Dioxide 38 H (21-32) mmol/L Anion Gap 6.0 (4-14) mEq/L BUN 31 H (7-18) mg/dL Creatinine 1.5 H (0.6-1.3) mg/dL Estimated GFR 43.5 (>59.9) Glucose 88 (70-110) mg/dL Calcium 8.9 (8.5-10.1) mg/dL Total Bilirubin 0.50 (0.0-1.0) mg/dL AST 15 (15-37) U/L ALT 25 L (30-65) U/L Alkaline Phosphatase 58 (50-136) U/L B-Natriuretic Peptide 98.5 (0-100) pg/mL Total Protein 7.2 (6.4-8.2) g/dL Albumin 3.3 L (3.4-5.0) g/dL Urine Color Yellow (STRAW/YELL.) Urine Appearance Clear (CLEAR) Ur Specific [place] 1.020 (1.001-1.035) Urine Protein Negative (NEGATIVE) Urine Glucose (UA) Normal (NORMAL) Urine Ketones Negative (NEGATIVE) Urine Occult Blood Negative (NEG - TRACE) Urine Nitrite Negative (NEGATIVE) Urine Bilirubin Negative (NEGATIVE) Urine Urobilinogen Normal (NORMAL) Ur Leukocyte Esterase Negative (NEGATIVE) Urine Test Negative (Negative) Fluid pH 7.5 (5 - 9) COVID-19 (MARIO) Not detected (Not Detectd) Influenza Type A Ag Negative (Negative) Influenza Type B Ag Negative (Negative) Discharge Plan Discharge Patient Disposition: Admitted As Observation Condition: Stable Clinical Impression: Hemoptysis, Pneumonia Time of Disposition: 22:55
[2025-05-22] MEDS: CEFTRIAXONE SODIUM 1 GM in 0.9 % SODIUM CHLORIDE MB+ 50 ML IV ONE (23:41)
[2025-05-22] MEDS: AZITHROMYCIN 500 MG 500 MG in 0.9 % SODIUM CHLORIDE 250 ML IV ONE (23:41)
[2025-05-23] MEDS: ONDANSETRON HCL/PF 4 MG/2 ML VIAL IVP ONE (01:08)
[2025-05-23 05:10] LABS: Basophils #(Absolute) Auto 0.1 (0.0-0.1); Basophils%(Percent) Auto 1.3 (0.1-0.85); Eosinophils#(Absolute)Auto 0.2 (0.0-0.2); Eosinophils%(Percent) Auto 3.9 % (0.4-2.8); Granulocytes % - Auto 73.2 % (47.8-71.3); Granulocytes#(Absolute)- Auto 4.4 (2.3-6.0); Hematocrit 24.1 % (35.9-46.7); Mean Corpuscular Volume 104.1 fl (81.0-93.7); Monocytes #(Absolute)- Auto 0.6 (1.1-3.1); Monocytes %(Percent)- Auto 9.3 % (3.6-9.8); Platelet Count 179 K/uL (152-353)
[2025-05-23 05:32] LABS: Potassium 4.3 mmol/L (3.6-5.2)
[2025-05-23] MEDS: FAMOTIDINE 20 MG TABLET PO SCH (09:13)
[2025-05-23 11:27] LABS: PCO2 ABG 76 mmHg (35-45); PO2 ABG 27 mmHg (60-100); pH ABG 7.41 (7.35-7.45)
[2025-05-23 11:28] LABS: Base Excess ABG 19.5 mmo1/L (-2-2); Oxygen Saturation ABG 51 % (92-100)
[2025-05-23] MEDS: IBUPROFEN 400 MG TABLET PO PRN (11:37)
[2025-05-23] MEDS: BUMETANIDE 1 MG/4 ML VIAL IVP ONE (13:14)
[2025-05-23 15:08] LABS: PCO2 ABG 81 mmHg (35-45); PO2 ABG 91 mmHg (60-100); pH ABG 7.38 (7.35-7.45)
[2025-05-23 15:09] LABS: Base Excess ABG 18.7 mmo1/L (-2-2); Oxygen Saturation ABG 97 % (92-100)
--- NOTE | 2025-05-23 15:32 | Discharge Summary ---
Transfer Discharge Sum: Prov Provider Date of admission: 05/22/25 22:54 Primary care physician: Neda Zimmerman NP Attending physician on discharge: Dona Pinzon Discharging clinician: Dona Pinzon Anticipated date of transfer: 05/23/25 DS: Diagnosis Discharge Diagnosis (1) Acute hypercapnic respiratory failure: (2) COPD with acute exacerbation: (3) Hypothyroid: Qualifiers: Hypothyroidism type: acquired Qualified Code(s): E03.9 - Hypothyroidism, unspecified (4) HTN (hypertension): Qualifiers: Hypertension type: primary hypertension Qualified Code(s): I10 - Essential (primary) hypertension (5) Pneumonia: (6) Thoracic ascending aortic aneurysm: (7) Right adrenal mass: (8) Cholelithiasis with chronic cholecystitis: (9) Bilateral lower extremity edema: Plan Patient condition worsening since recent visit one week ago where she was treated for Pneumonia with IV antibiotics. Transfer Discharge Sum: Med Medications Active and Home Medications: Home Medications allopurinol 100 mg tablet 100 mg PO DAILY 05/11/25 [History Confirmed 05/23/25] bumetanide 1 mg tablet 1 mg PO DAILY 05/11/25 [History Confirmed 05/23/25] gabapentin 400 mg capsule 400 mg PO TID 05/11/25 [History Confirmed 05/23/25] levothyroxine 75 mcg tablet 75 mcg PO DAILY 05/11/25 [History Confirmed 05/23/25] venlafaxine 37.5 mg capsule,extended release 24 hr 37.5 mg PO DAILY 05/11/25 [History Confirmed 05/23/25] levothyroxine 100 mcg capsule 100 mcg PO DAILY hypothyroid #30 caps 05/16/25 [Rx Confirmed 05/23/25] losartan 100 mg tablet 100 mg PO DAILY htn #30 tabs 05/16/25 [Rx Confirmed 05/23/25] Active Medications Famotidine (Famotidine 20 Mg Tablet) 20 mg PO BID LEIDY Last Admin: 05/23/25 09:13 Dose: 20 mg Ibuprofen (Ibuprofen 400 Mg Tablet) 400 mg PO Q6H PRN PRN Reason: Pain Last Admin: 05/23/25 11:37 Dose: 400 mg Transfer Discharge Sum: Hosp Time Spent with Patient Time attestation: Total time spent providing and/or coordinating transfer services: Exam Constitutional: normal general appearance Vital Signs - 24 hr 05/22/25 15:40 05/22/25 18:00 05/22/25 20:00 Temperature 98.3 F Pulse Rate 82 70 76 Pulse Rate [Bilate ral] Respiratory Rate 24 19 17 Blood Pressure 141/99 141/103 160/78 Blood Pressure [Le ft Arm] Pulse Oximetry 97 95 95 Oxygen Delivery Me thod Room Air Oxygen Flow Rate Fraction of Inspir ed Oxygen 05/22/25 21:00 05/22/25 21:50 05/22/25 22:41 Temperature Pulse Rate 69 66 Pulse Rate [Bilate ral] Respiratory Rate 17 16 Blood Pressure 153/90 161/89 148/100 Blood Pressure [Le ft Arm] Pulse Oximetry 97 95 97 Oxygen Delivery Me thod Oxygen Flow Rate Fraction of Inspir ed Oxygen 05/22/25 23:19 05/22/25 23:41 05/22/25 23:47 Temperature 98.3 F 97.6 F Pulse Rate 66 Pulse Rate [Bilate ral] 77 Respiratory Rate 16 18 Blood Pressure 148/100 Blood Pressure [Le ft Arm] 157/95 Pulse Oximetry 97 97 Oxygen Delivery Me thod Room Air Nasal Cannula Oxygen Flow Rate Fraction of Inspir ed Oxygen 05/23/25 03:31 05/23/25 08:00 05/23/25 11:30 Temperature 97.9 F 97.6 F Pulse Rate 86 Pulse Rate [Bilate ral] 78 78 Respiratory Rate 21 20 Blood Pressure Blood Pressure [Le ft Arm] 135/82 129/90 Pulse Oximetry 94 L 93 L 91 L Oxygen Delivery Me thod Nasal Cannula Nasal Cannula Room Air Oxygen Flow Rate 4 4 Fraction of Inspir ed Oxygen 36 05/23/25 12:00 05/23/25 13:45 Temperature 98.4 F Pulse Rate Pulse Rate [Bilate ral] 75 Respiratory Rate 20 Blood Pressure Blood Pressure [Le ft Arm] 136/75 Pulse Oximetry 97 Oxygen Delivery Me thod Nasal Cannula Oxygen Flow Rate 4 Fraction of Inspir ed Oxygen 32 HENMT: normocephalic Eyes: PERRL and EOMs intact bilaterally Chest: inspection of chest normal Respiratory: breath sounds equal bilaterally, normal respiratory effort, auscultation abnormal and wheezing noted Faint wheeze Cardiovascular: normal heart rate noted, regular rhythm noted and no murmur Extremities: Nonpitting edema lower extremities Psychiatry: mental status grossly normal Skin: skin color normal Discharge Plan Discharge Condition: Stable Discharge Medications: No Action allopurinol 100 mg tablet 100 mg PO DAILY bumetanide 1 mg tablet 1 mg PO DAILY gabapentin 400 mg capsule 400 mg PO TID levothyroxine 75 mcg tablet 75 mcg PO DAILY venlafaxine 37.5 mg capsule,extended release 24hr 37.5 mg PO DAILY losartan 100 mg tablet 100 mg PO DAILY Qty: 30 0RF levothyroxine 100 mcg capsule 100 mcg PO DAILY Qty: 30 0RF Hospital Course: ]CT for PE study showed possible CHF versus other etiologies including hemorrhage and a high-resolution CT scan was recommended. This was performed which Show basically the same thing. My supervising physician Dr. Solis was called and his recommendation was to cover for pneumonia during the night and give some Lasix and repeat labs in the morning and see how the patient is doing which I think is very appropriate Print Language: Georgian Follow-Ups: Neda Zimmerman NP [Primary Care Provider, Medical]
[2025-05-23] MEDS ORDERED: ONDANSETRON HCL/PF 4 MG/2 ML VIAL IVP PRN (15:55)
--- NOTE | 2025-05-23 15:55 | History & Physical Report ---
H&P: HPI History of Present Illness Chief complaint: HEMOPTYSIS,PNEUMONIA Narrative: 44 year old female here for sob and hemoptysis. She was just discharged this past Monday after receiving IV antibiotics for Pneumonia. She has hisotry of COPD with home oxygen at 4 LNC. She is also non compliant with CPAP @ nite at home. CTA revealed 4 cm aneurysm ascending thoracic aorta. CT Chest positive for aneurysm as above. Cardiomegaly, psoterior lobe pneumonia, possible CHF, no lung mass. Chronic cholecystitis with cholelithiasis. Patient sats 91% on 4LNC. ABG revealed compensated metabolic alkalosis. Patient PCP is Neda Zimmerman, she did not attend scheduled follow up this past week. Review of Systems Status of ROS 10 or more systems reviewed and unremark able except as noted in history and below Constitutional Denies: fever or chills Cardiovascular Reports: edema and swelling of feet/ankles Respiratory Reports: cough, coughing up blood and chest congestion PFSH PFSH Medical History Depression Anemia Hypothyroid On home oxygen therapy Thyroid disease CAD (coronary artery disease) COPD (chronic obstructive pulmonary disease) HTN (hypertension) Gout Surgical History Previous section Social History Smoking status: current every day smoker Second hand tobacco smoke exposure: No Within the past year, how often did you have a drink containing alcohol: never Within the past year, how often did you have six or more drinks on one occasion: never Score interpretation: A score less than 3 is consistent with normal alcohol consumption. Non-prescribed substance use: denies use What is your current living situation: I presently have a place to live Problems where you live: no known problems Problems where you live details: No AC, No running water. Home is in very poor condition. In the past 12 months, utilities in danger of being shut off: no In past 12 months, lack of transportation kept you from medical appts, meetings, work, or getting things needed for daily living: No How hard is it for you to pay for the very basics like food, housing, medical care, and heating: decline to answer Past 12 mos, fear food will run out before able to buy more: never true In past 12 months, food didn't last until money to buy more: never true Are you following a diet prescribed by a doctor: No Are you following a special diet: No Do you want help finding or keeping work or a job: I do not need or want help Known occupational exposures/hazards: No Highest level of school completed/degree received: high school Do you want help with school or training: No How many days of moderate to strenuous exercise, like a brisk walk, did you do in the last 7 days: decline to answer Caffeine: No How often does anyone, including family, friends and others, physically hurt you : never How often does anyone, including family, friends and others, insult or talk down to you: never How often does anyone, including family, friends and others, threaten you with harm: never How often does anyone, including family, friends and others, scream or curse at you: never Firearms in home: no Do you need help with ADLs: I don't need any help Due to a physical, mental, or emotional condition, do you have difficulty doing errands alone such as visiting a doctor's office or shopping: No Little interest or pleasure in doing things: not at all Feeling down, depressed, or hopeless: not at all Feel stressed/tense/nervous/anxious/difficulty sleeping: to some extent Life stressors: financial matters Do you think of yourself as: straight/heterosexual Gender Identity: female Are you currently sexually active: No Are you using contraception or practicing any form of control: No service: No Meds Home Medications and Allergies Home Medications Medication Instructions Recorded Confirmed Type allopurinol 100 mg tablet 100 mg PO DAILY 05/11/25 History bumetanide 1 mg tablet 1 mg PO DAILY 05/11/2505/23 History gabapentin 400 mg capsule 400 mg PO TID 05/11/2505/23 History levothyroxine 75 mcg tablet 75 mcg PO DAILY 05/11/25 0 05/23/25 History venlafaxine 37.5 mg 37.5 mg PO DAILY 05/11/25 History capsule,extended release 24 hr levothyroxine 100 mcg capsule 100 mcg PO DAILY hypothy roid #30 05/16/25 05/23/25 Rx caps losartan 100 mg tablet 100 mg PO DAILY htn #30 tabs 05/16/25 05/23/25 Rx Allergies Allergy/AdvReac Type Severity Reaction Status Date / Time No Known Drug Allergies Allergy Verified 05/22/25 15:57 Exam Constitutional: normal general appearance (ill appearance, dusky color), distress noted, average body habitus (morbidly obese BMI 61), no limitations and alert Vital Signs - 24 hr 05/22/25 15:40 05/22/25 18:00 05/22/25 20:00 Temperature 98.3 F Pulse Rate 82 70 76 Pulse Rate [Bilate ral] Respiratory Rate 24 19 17 Blood Pressure 141/99 141/103 160/78 Blood Pressure [Le ft Arm] Pulse Oximetry 97 95 95 Oxygen Delivery Me thod Room Air Oxygen Flow Rate Fraction of Inspir ed Oxygen 05/22/25 21:00 05/22/25 21:50 05/22/25 22:41 Temperature Pulse Rate 69 66 Pulse Rate [Bilate ral] Respiratory Rate 17 16 Blood Pressure 153/90 161/89 148/100 Blood Pressure [Le ft Arm] Pulse Oximetry 97 95 97 Oxygen Delivery Me thod Oxygen Flow Rate Fraction of Inspir ed Oxygen 05/22/25 23:19 05/22/25 23:41 05/22/25 23:47 Temperature 98.3 F 97.6 F Pulse Rate 66 Pulse Rate [Bilate ral] 77 Respiratory Rate 16 18 Blood Pressure 148/100 Blood Pressure [Le ft Arm] 157/95 Pulse Oximetry 97 97 Oxygen Delivery Me thod Room Air Nasal Cannula Oxygen Flow Rate Fraction of Inspir ed Oxygen 05/23/25 03:31 05/23/25 08:00 05/23/25 11:30 Temperature 97.9 F 97.6 F Pulse Rate 86 Pulse Rate [Bilate ral] 78 78 Respiratory Rate 21 20 Blood Pressure Blood Pressure [Le ft Arm] 135/82 129/90 Pulse Oximetry 94 L 93 L 91 L Oxygen Delivery Me thod Nasal Cannula Nasal Cannula Room Air Oxygen Flow Rate 4 4 Fraction of Inspir ed Oxygen 36 05/23/25 12:00 05/23/25 13:45 Temperature 98.4 F Pulse Rate Pulse Rate [Bilate ral] 75 Respiratory Rate 20 Blood Pressure Blood Pressure [Le ft Arm] 136/75 Pulse Oximetry 97 Oxygen Delivery Me thod Nasal Cannula Oxygen Flow Rate 4 Fraction of Inspir ed Oxygen 32 HENMT: normocephalic, head/scalp atraumatic and hearing grossly normal bilaterally Eyes: conjunctivae normal, no scleral icterus, normal visual dunn by confrontation and no nystagmus Neck/C-Spine: visual inspection normal and trachea midline Lymph: no lymphadenopathy noted (not assessed) Chest: inspection of chest abnormal and palpation of chest abnormal Respiratory: breath sounds unequal (Left lower lobe rhonchi, diminished all other lobes) and normal respiratory effort (noted work of breathing with any movement) Cardiovascular: normal heart rate noted, regular rhythm noted, no gallop, no rub, no murmur and peripheral pulses 2+ throughout Gastrointestinal: abdomen normal to inspection, abdomen firm to palpation and normoactive bowel sounds Genitourinary: deferred Extremities: normal to inspection (+2 pitting edema BLE) Neurology: manager cardiac II-XII intact, no focal motor deficit noted, speech normal, coordination normal and no fasciculations noted Psychiatry: oriented x3, thought process normal, cooperative and affect normal Skin: skin color normal (dusky), no rash, no lesions, no ecchymosis noted, no jaundice and no petechiae Assessment and Plan Assessment and Plan (1) Acute hypercapnic respiratory failure: Code(s): J96.02 - Acute respiratory failure with hypercapnia (2) COPD with acute exacerbation: Code(s): J44.1 - Chronic obstructive pulmonary disease with (acute) exacerbation (3) Hypothyroid: Qualifiers: Hypothyroidism type: acquired Qualified Code(s): E03.9 - Hypothyroidism, unspecified Code(s): E03.9 - Hypothyroidism, unspecified (4) HTN (hypertension): Qualifiers: Hypertension type: primary hypertension Qualified Code(s): I10 - Essential (primary) hypertension Code(s): I10 - Essential (primary) hypertension (5) Pneumonia: Code(s): J18.9 - Pneumonia, unspecified organism (6) Thoracic ascending aortic aneurysm: Code(s): I71.21 - Aneurysm of the ascending aorta, without rupture (7) Right adrenal mass: Code(s): E27.8 - Other specified disorders of adrenal gland (8) Cholelithiasis with chronic cholecystitis: Code(s): K80.10 - Calculus of gallbladder with chronic cholecystitis without obstruction (9) Bilateral lower extremity edema: Code(s): R60.0 - Localized edema Plan Transfer out for higher level of care. Suspect early ARDS, Pickwickian Syndrome. Patient accepted at [facility]. Will transfer as soon as bed is available. Today she has been given 1 mg Bumex IV. ECHO performed on 05/13/25 was verbally read as mostly normal with EF @ 61%. Duo nebs prn Placed on Bipap for one hour with repeat ABG worse with higher CO2. Will maintain on Oxygen 4LNC. Repeat CBC, CMP, ABG in am if still here. Restart home medications. Results Labs Labs: CBC 05/22/25 05/23/25 Range/Units 16:00 05:00 WBC 6.4 6.0 (4.3-9.3) K/uL RBC 2.4 L 2.3 L (4.00-5.50) M/uL Hgb 8.2 L 7.9 L (12.5-15.8) gm/dL Hct 25.5 L 24.1 L (35.9-46.7) % Plt Count 168 179 (152-353) K/uL Gran % 71.5 H 73.2 H (47.8-71.3) % Lymph % (Auto) 15.0 L 12.3 L (20.0-43.0) % [place] % (Auto) 9.5 9.3 (3.6-9.8) % Eos % (Auto) 3.4 H 3.9 H (0.4-2.8) % Baso % (Auto) 0.6 1.3 H (0.1-0.85) Lymph # (Auto) 1.0 L 0.7 L (1.1-3.1) [place] # (Auto) 0.6 L 0.6 L (1.1-3.1) Eos # (Auto) 0.2 0.2 (0.0-0.2) Baso # (Auto) 0.0 0.1 (0.0-0.1) Absolute Gran (auto) 4.6 4.4 (2.3-6.0) CMP 05/22/25 05/23/25 16:00 05:00 Sodium 143 146 H Potassium 4.4 4.3 Chloride 99.0 99.0 Carbon Dioxide 38 H 40 H BUN 31 H 27 H Creatinine 1.5 H 1.6 H Glucose 88 97 Calcium 8.9 8.8 Liver Function 05/22/25 05/23/25 Range/Units 16:00 05:00 Total Bilirubin 0.50 0.40 (0.0-1.0) mg/dL AST 15 16 (15-37) U/L ALT 25 L 22 L (30-65) U/L Alkaline Phosphatase 58 54 (50-136) U/L Albumin 3.3 L 3.1 L (3.4-5.0) g/dL Urine 05/22/25 16:00 Urine Color Yellow Urine Appearance Clear Ur Specific [place] 1.020 Urine Protein Negative Urine Glucose (UA) Normal ABG ABG results: 05/23/25 05/23/25 11:04 13:46 ABG pH 7.41 7.38 ABG pCO2 76 H* 81 H* ABG pO2 55 127 ABG HCO3 48.2 H 47.9 H ABG Total CO2 50.5 50.4 ABG O2 Saturation 51 L* 97 ABG Base Excess 19.5 H* 18.7 H*
[2025-05-23] MEDS: GABAPENTIN 400 MG CAPSULE PO SCH (16:19)
[2025-05-23] MEDS: VENLAFAXINE HCL 37.5 MG CAP.ER.24H PO SCH (16:19)
[2025-05-23] MEDS: LOSARTAN POTASSIUM 50 MG TABLET PO SCH (16:19)
[2025-05-24 07:13] LABS: Eosinophils#(Absolute)Auto 0.2 (0.0-0.2); Granulocytes#(Absolute)- Auto 3.4 (2.3-6.0); Monocytes #(Absolute)- Auto 0.6 (1.1-3.1); Monocytes %(Percent)- Auto 11.6 % (3.6-9.8)
[2025-05-24 07:24] LABS: Basophils%(Percent) Auto 0.7 (0.1-0.85); Eosinophils%(Percent) Auto 3.6 % (0.4-2.8); Granulocytes % - Auto 64.9 % (47.8-71.3); Mean Corpuscular Volume 104.5 fl (81.0-93.7); Platelet Count 179 K/uL (152-353); White Blood Count 5.3 K/uL (4.3-9.3)
[2025-05-24 07:27] LABS: Hematocrit 23.7 % (35.9-46.7)
[2025-05-24 07:32] LABS: Potassium 4.8 mmol/L (3.6-5.2)
[2025-05-24] MEDS: LEVOTHYROXINE SODIUM 100 MCG TABLET PO SCH (08:03)
[2025-05-24] MEDS: LEVOTHYROXINE SODIUM 75 MCG TABLET PO SCH (08:03)
[2025-05-24] MEDS: ALLOPURINOL 100 MG TABLET PO SCH (08:03)
[2025-05-24] MEDS: BUMETANIDE 1 MG TABLET PO SCH (08:03)
--- NOTE | 2025-05-24 10:41 | Progress Note ---
Progress Note: Subjective Subjective Interval history: 44 year old female who reported to the ED with c/o sob and coughing up blood. She was discharged on this past Monday following several days IV antibiotic therapy for pneumonia. She is being managed with 4LNC and sats in low 90's until she tries to get up or move and she desats severely. We have arranged transfer to [facility] and are awaiting a bed. Coincidentally she was found to have an adrenal mass and aneurysm on CT Chest this visit which she will need future follow up for. Today she states "I had a good night". I have noted her color is slightly improved today. Her ABG yesterday was metabolic alkalosis that was compensated. Exam Constitutional: normal general appearance (ill appearance, dusky color), distress noted, average body habitus (morbidly obese BMI 61), no limitations and alert Vital Signs - 24 hr 05/23/25 11:30 05/23/25 12:00 05/23/25 13:45 Temperature 98.4 F Pulse Rate 86 Pulse Rate [Bilate ral] 75 Respiratory Rate 20 Blood Pressure Blood Pressure [Le ft Arm] 136/75 Pulse Oximetry 91 L 97 Oxygen Delivery Me thod Room Air Nasal Cannula Oxygen Flow Rate 4 4 Fraction of Inspir ed Oxygen 36 32 05/23/25 16:00 05/23/25 16:20 05/23/25 19:58 Temperature 98.1 F Pulse Rate Pulse Rate [Bilate ral] 72 Respiratory Rate 22 Blood Pressure 132/85 Blood Pressure [Le ft Arm] 139/82 Pulse Oximetry 98 100 Oxygen Delivery Me thod Nasal Cannula Nasal Cannula Oxygen Flow Rate 4 4 Fraction of Inspir ed Oxygen 36 05/23/25 20:00 05/24/25 00:00 05/24/25 04:00 Temperature 98.7 F 97.9 F 98.2 F Pulse Rate Pulse Rate [Bilate ral] 67 76 75 Respiratory Rate 20 18 18 Blood Pressure Blood Pressure [Le ft Arm] 108/62 112/70 129/84 Pulse Oximetry 91 L 94 L 96 Oxygen Delivery Me thod Nasal Cannula Nasal Cannula Nasal Cannula Oxygen Flow Rate 4 4 4 Fraction of Inspir ed Oxygen 05/24/25 07:59 Temperature 97.5 F L Pulse Rate Pulse Rate [Bilate ral] 77 Respiratory Rate 19 Blood Pressure Blood Pressure [Le ft Arm] 140/77 Pulse Oximetry 100 Oxygen Delivery Me thod High Flow Nasal Ca nnula Oxygen Flow Rate 4 Fraction of Inspir ed Oxygen HENMT: normocephalic, head/scalp atraumatic and hearing grossly normal bila terally Eyes: PERRL, EOMs intact bilaterally, conjunctivae normal, no scleral icterus, normal visual dunn by confrontation and no nystagmus Neck/C-Spine: visual inspection normal and trachea midline Lymph: no lymphadenopathy noted (not assessed) Chest: inspection of chest abnormal and palpation of chest abnormal Respiratory: breath sounds unequal (Left lower lobe rhonchi, diminished all other lobes), normal respiratory effort (noted work of breathing with any movement), auscultation abnormal and wheezing noted Faint wheeze Cardiovascular: normal heart rate noted, regular rhythm noted, no gallop, no rub, no murmur and peripheral pulses 2+ throughout Gastrointestinal: abdomen normal to inspection, abdomen firm to palpation and normoactive bowel sounds Genitourinary: no CVA tenderness and bladder normal to palpation deferred Back/Pelvis: spine normal to inspection, no thoracic spine tenderness, no lumbar spine tenderness and thoracic spine ROM normal Extremities: normal to inspection (+2 pitting edema BLE) Nonpitting edema lower extremities Neurology: dry end tester II-XII intact, no focal motor deficit noted, speech normal, coordination normal and no fasciculations noted Psychiatry: mental status grossly normal, oriented x3, thought process normal, cooperative and affect normal Skin: skin color normal (dusky), no rash, no lesions, no ecchymosis noted, no jaundice and no petechiae Progress Note: Objective Labs Labs: CBC 05/24/25 Range/Units 07:00 WBC 5.3 (4.3-9.3) K/uL RBC 2.3 L (4.00-5.50) M/uL Hgb 7.8 L (12.5-15.8) gm/dL Hct 23.7 L* (35.9-46.7) % Plt Count 179 (152-353) K/uL Gran % 64.9 (47.8-71.3) % Lymph % (Auto) 19.2 L (20.0-43.0) % [place] % (Auto) 11.6 H (3.6-9.8) % Eos % (Auto) 3.6 H (0.4-2.8) % Baso % (Auto) 0.7 (0.1-0.85) Lymph # (Auto) 1.0 L (1.1-3.1) [place] # (Auto) 0.6 L (1.1-3.1) Eos # (Auto) 0.2 (0.0-0.2) Baso # (Auto) 0.0 (0.0-0.1) Absolute Gran (auto) 3.4 (2.3-6.0) CMP 05/24/25 07:00 Sodium 143 Potassium 4.8 Chloride 99.0 Carbon Dioxide 40 H BUN 28 H Creatinine 1.8 H Glucose 91 Calcium 8.7 Liver Function 05/24/25 Range/Units 07:00 Total Bilirubin 0.31 (0.0-1.0) mg/dL AST 11 L (15-37) U/L ALT 23 L (30-65) U/L Alkaline Phosphatase 63 (50-136) U/L Albumin 3.1 L (3.4-5.0) g/dL Urine 05/22/25 16:00 Urine Color Yellow Urine Appearance Clear Ur Specific [place] 1.020 Urine Protein Negative Urine Glucose (UA) Normal Progress Note: A&P Assessment and Plan (1) Acute hypercapnic respiratory failure: (2) COPD with acute exacerbation: (3) Hypothyroid: Qualifiers: Hypothyroidism type: acquired Qualified Code(s): E03.9 - Hypothyroidism, unspecified (4) HTN (hypertension): Qualifiers: Hypertension type: primary hypertension Qualified Code(s): I10 - Essential (primary) hypertension (5) Pneumonia: (6) Thoracic ascending aortic aneurysm: (7) Right adrenal mass: (8) Cholelithiasis with chronic cholecystitis: (9) Bilateral lower extremity edema: (10) Cellulitis, abdominal wall: (11) Hypomagnesemia: (12) Hypokalemia: (13) Failure to thrive in adult: Plan Transfer out for higher level of care. Suspect early ARDS, Pickwickian Syndrome. Patient accepted at [facility]. Will transfer as soon as bed is available. Restarted Bumex PO. ECHO performed on 05/13/25 not read yet, was verbally read as mostly normal with EF @ 61%. Duo nebs prn Placed on Bipap for one hour with repeat ABG worse with higher CO2. Will maintain on Oxygen 4LNC. Repeat CBC, CMP, in am if still here. Restart home medications. Fall Risk Details B[place]reaux Fall Scale Risk Level: Moderate Fall Risk Current Medications: Current Medications Albuterol (Albuterol Sulfate 2.5 Mg/3 Ml Vial.Neb) 2.5 mg INH RQ4 LEIDY Allopurinol (Allopurinol 100 Mg Tablet) 100 mg PO DAILY [facility] Last Admin: 05/24/25 08:03 Dose: 100 mg Bumetanide (Bumetanide 1 Mg Tablet) 1 mg PO DAILY [facility] Last Admin: 05/24/25 08:03 Dose: 1 mg Famotidine (Famotidine 20 Mg Tablet) 20 mg PO BID [facility] Last Admin: 05/24/25 08:03 Dose: 20 mg Gabapentin (Gabapentin 400 Mg Capsule) 400 mg PO TID [facility] Last Admin: 05/24/25 08:03 Dose: 400 mg Ibuprofen (Ibuprofen 800 Mg Tablet) 800 mg PO TID PRN PRN Reason: Pain Levothyroxine Sodium (Levothyroxine Sodium 75 Mcg Tablet) 75 mcg PO DAILY [facility] Last Admin: 05/24/25 08:03 Dose: 75 mcg Levothyroxine Sodium (Levothyroxine Sodium 100 Mcg Tablet) 100 mcg PO DAILY [facility] Last Admin: 05/24/25 08:03 Dose: 100 mcg Losartan Potassium (Losartan Potassium 50 Mg Tablet) 100 mg PO DAILY [facility] Last Admin: 05/24/25 08:03 Dose: 100 mg Ondansetron HCl (Ondansetron Hcl/Pf 4 Mg/2 Ml Vial) 4 mg IVP Q6H PRN PRN Reason: Nausea Venlafaxine HCl (Venlafaxine Hcl 37.5 Mg Cap.Er.24h) 37.5 mg PO DAILY [facility] Last Admin: 05/24/25 08:03 Dose: 37.5 mg Time Spent With Patient Time: Total time spent is greater than 50% in coordination of care (as documented) at patient's floor/unit and/or counseling patient: 30
[2025-05-24] MEDS: ALBUTEROL SULFATE 2.5 MG/3 ML VIAL.NEB INH SCH (12:03)
[2025-05-24] MEDS: IBUPROFEN 800 MG TABLET PO PRN (18:01)
[2025-05-24] MEDS: NICOTINE 21 MG/HR .TD24 TD SCH (21:12)
[2025-05-25 06:03] VITALS: PULSE 78; RESP 19
[2025-05-25 07:56] VITALS: BP 136/83; TEMP 98.3
--- NOTE | 2025-05-25 10:03 | Discharge Summary ---
DS: Providers Provider Date of admission: 05/22/25 22:54 Primary care physician: Neda Zimmerman NP Attending physician on discharge: Dona Pinzon Discharging clinician: Dona Pinzon Anticipated date of discharge: 05/25/25 DS: Diagnosis Discharge Diagnosis (1) Acute hypercapnic respiratory failure: (2) COPD with acute exacerbation: (3) Hypothyroid: Qualifiers: Hypothyroidism type: acquired Qualified Code(s): E03.9 - Hypothyroidism, unspecified (4) HTN (hypertension): Qualifiers: Hypertension type: primary hypertension Qualified Code(s): I10 - Essential (primary) hypertension (5) Pneumonia: (6) Thoracic ascending aortic aneurysm: (7) Right adrenal mass: (8) Cholelithiasis with chronic cholecystitis: (9) Bilateral lower extremity edema: (10) Cellulitis, abdominal wall: (11) Hypomagnesemia: (12) Hypokalemia: (13) Failure to thrive in adult: Plan Patient has had two good days and nights with regard to respiratory status since we planned to transfer out. At this time she is at her baseline and eating well, talking without sob, feeling better and color has returned to her face. She denies any complaints at this time so will discharge her home to follow up with PCP. She will need to see follow up with Endocrinology Right adrenal nodules and with Vascular Surgeon for 4cm ascending thoracic aortic aneurysm as well. DS: Summary Hospital Course Hospital Course: ]CT for PE study showed possible CHF versus other etiologies including hemorrhage and a high-resolution CT scan was recommended. This was performed which Show basically the same thing. My supervising physician Dr. Solis was called and his recommendation was to cover for pneumonia during the night and give some Lasix and repeat labs in the morning and see how the patient is doing which I think is very appropriate. Treated with Albuterol nebs oxygen 4 LNC, bumex IV. Improved condition for 48 hours. Will discharge home today as she has not complaints for the past 48 hours. Status at Discharge Functional status at discharge: independent ambulation Overall status at discharge: patient is back to baseline Time Spent with Patient Time attestation: Total time spent providing and/or coordinating discharge services: 60 Exam Constitutional: normal general appearance (ill appearance, dusky color), no apparent distress, average body habitus (morbidly obese BMI 61), no limitations and alert Vital Signs - 24 hr 06/28/25 11:50 05/24/25 12:04 05/24/25 15:54 Temperature 97.5 F L 98.4 F Pulse Rate [Bilate ral] 72 72 Respiratory Rate 19 19 Blood Pressure [Le ft Arm] 147/91 142/83 Pulse Oximetry 99 94 L 100 Oxygen Delivery Me thod Nasal Cannula Nasal Cannula Oxygen Flow Rate 4 4 Fraction of Inspir ed Oxygen 05/24/25 19:41 05/24/25 19:41 05/24/25 19:48 Temperature 98.8 F Pulse Rate [Bilate ral] 72 Respiratory Rate 18 Blood Pressure [Le ft Arm] 124/78 Pulse Oximetry 97 97 98 Oxygen Delivery Me thod Nasal Cannula Nasal Cannula Oxygen Flow Rate 4 Fraction of Inspir ed Oxygen 36 05/24/25 23:35 05/25/25 00:00 05/25/25 04:00 Temperature 98.1 F 97.9 F Pulse Rate [Bilate ral] 83 78 Respiratory Rate 21 19 Blood Pressure [Le ft Arm] 122/72 128/80 Pulse Oximetry 93 L 95 97 Oxygen Delivery Me thod Room Air Nasal Cannula Oxygen Flow Rate 4 Fraction of Inspir ed Oxygen 05/25/25 04:32 05/25/25 07:54 05/25/25 08:09 Temperature 98.3 F Pulse Rate [Bilate ral] 78 Respiratory Rate 19 Blood Pressure [Le ft Arm] 136/83 Pulse Oximetry 96 98 98 Oxygen Delivery Me thod Nasal Cannula Oxygen Flow Rate 4 Fraction of Inspir ed Oxygen HENMT: normocephalic, head/scalp atraumatic and hearing grossly normal bilate rally Eyes: PERRL, EOMs intact bilaterally, conjunctivae normal, no scleral icterus, normal visual dunn by confrontation and no nystagmus Neck/C-Spine: visual inspection normal and trachea midline Lymph: no lymphadenopathy noted (not assessed) Chest: inspection of chest normal Respiratory: breath sounds equal bilaterally, normal respiratory effort (noted work of breathing with any movement), clear to auscultation bilaterally and no wheezes Faint wheeze Cardiovascular: normal heart rate noted, regular rhythm noted, no gallop, no rub, no murmur and peripheral pulses 2+ throughout Gastrointestinal: abdomen normal to inspection, abdomen soft to palpation and normoactive bowel sounds Genitourinary: no CVA tenderness and bladder normal to palpation deferred Back/Pelvis: spine normal to inspection, no thoracic spine tenderness, no lumbar spine tenderness and thoracic spine ROM normal Extremities: normal to inspection (+2 pitting edema BLE) Nonpitting edema lower extremities Neurology: president financial institution II-XII intact, no focal motor deficit noted, speech normal, coordination normal and no fasciculations noted Psychiatry: mental status grossly normal, oriented x3, thought process normal, cooperative and affect normal Skin: skin color normal, no rash, no lesions, no ecchymosis noted, no jaundice and no petechiae Discharge Plan Discharge Disposition: Home, Self-Care Condition: Stable Discharge Medications: Continued allopurinol 100 mg tablet 100 mg PO DAILY bumetanide 1 mg tablet 1 mg PO DAILY gabapentin 400 mg capsule 400 mg PO TID venlafaxine 37.5 mg capsule,extended release 24hr 37.5 mg PO DAILY losartan 100 mg tablet 100 mg PO DAILY Qty: 30 0RF levothyroxine 100 mcg capsule 100 mcg PO DAILY Qty: 30 0RF ibuprofen 800 mg tablet 800 mg PO TID PRN (Reason: pain) Discharge Orders: Discharge Order (Routine); Ordered 05/25/25 Ordered By: Dona Pinzon Activity: increase activity as tolerated and resume usual activities as tolerated Diet: low fat, low cholesterol and low salt diet Assessment: Follow up with PCP in one week. Keep all follow appointments as scheduled. Continue to use oxygen at all times while at home. Use CPAP at night as ordered. Stop Smoking. Forms: Portal/Health Info Access Inst Follow-Ups: Neda Zimmerman NP [Primary Care Provider, Medical]
== END 2025-05-25 10:26 | disposition home or self-care (01) | DRG 189 ==
LOC: MS 15:40 → ED 15:40 → OBSVTOIN 22:54 → MS 23:19
PROVIDERS: ADMIT Physician Assistant Medical; ATTEND Family Medicine
DX: J18.9 Pneumonia, unspecified organism; I10 Essential (primary) hypertension; R60.0 Localized edema; Z91.199 Patient's noncompliance with other medical treatment and regimen due to unspecified reason; J44.1 Chronic obstructive pulmonary disease with (acute) exacerbation; Z99.81 Dependence on supplemental oxygen; K80.10 Calculus of gallbladder with chronic cholecystitis without obstruction; E87.3 Alkalosis; I25.10 Atherosclerotic heart disease of native coronary artery without angina pectoris; I71.21 Aneurysm of the ascending aorta, without rupture; J44.0 Chronic obstructive pulmonary disease with (acute) lower respiratory infection; E87.6 Hypokalemia; F17.200 Nicotine dependence, unspecified, uncomplicated; L03.311 Cellulitis of abdominal wall; E83.42 Hypomagnesemia; I50.9 Heart failure, unspecified; E27.8 Other specified disorders of adrenal gland; E03.9 Hypothyroidism, unspecified; Z79.890 Hormone replacement therapy; J96.02 Acute respiratory failure with hypercapnia; R62.7 Adult failure to thrive; Z79.899 Other long term (current) drug therapy